=== PATIENT | female | born 2000 | race Caucasian/White ===

== ENCOUNTER 2020-04-12 20:33 | Emergency (ER) | payer OTHER, SELFPAY ==
--- NOTE | ~2020-04-12 | XR_ITS ---
XR chest 1V portable DATE: 04/12/2020 21:27 INDICATION: Cough, shortness of breath, nausea, vomiting TECHNIQUE: Portable upright AP chest on 04/12/2020 at 2121 hours COMPARISON: 03/26/2020 PA chest FINDINGS: Normal heart size. No hilar or mediastinal enlargement. No pulmonary infiltrate or consolid ation, pleural effusion or pulmonary vascular congestion or pneumothorax. IMPRESSION: No active cardiopulmonary disease Reviewed, dictated and finalized at location A.
[2020-04-12 20:36] VITALS: BP 120/66; PULSE 109; RESP 17; TEMP 37.7; O2SAT 100
--- NOTE | 2020-04-12 20:49 | ED.NAVMDI ---
HPI - Nausea/Vomiting/Diarrhea General Chief complaint: Nausea/Vomiting/Diarrhea Stated complaint: n/v Time Seen by Provider: 04/12/20 20:49 Source: patient and family Mode of arrival: ambulatory Limitations: no limitations History of Present Illness HPI Narrative: Patient is a 19-year-old female with a history of hypothyroidism, PCOS who presents for evaluation of nausea, vomiting, cough, subjective fevers. Patient states that initially she had attributed her nausea and diarrhea to some Turkish food that she ate on as she had awakened night with vomiting and diarrhea. However, patient on Tuesday developed subjective fever, chills, myalgias, states that she feels very weak and fatigued. She denies any rash. She reports a dry cough. Patient recently traveled home from [place] on April 09, was masking for the flight, did not mass continuously while in [place]. Related Data Home Medications Medication Instructions Recorded Confirmed drospirenone-ethinyl estradiol tablet 04/12/20 04/12/20 [Nubia (28)] levothyroxine 04/12/20 liraglutide [Victoza 3-Davis] mg SUBCUT 04/12/20 metformin mg PO 04/12/20 Allergies Allergy/AdvReac Type Severity Reaction Status Date / Time Cephalosporins AdvReac Unknown GI UPSET Verified 04/12/20 20:35 erythromycin base AdvReac Unknown GI UPSET Verified 04/12/20 20:35 Review of Systems Review of Systems: Narrative: CONSTITUTIONAL: Reports subjective fever and chills EYES: Denies visual changes, redness, or discharge. ENT: Reports rhinorrhea and congestion CARDIOVASCULAR: Denies chest pain, palpitations, or edema. RESPIRATORY: Reports dry cough, denies shortness of breath GASTROINTESTINAL: Denies current abdominal pain, reports nausea, vomiting and diarrhea GENITOURINARY: Denies dysuria or hematuria. SKIN: Denies rash or itching. MUSCULOSKELETAL: Denies back pain, joint pain, reports myalgias NEUROLOGIC: Denies headache, numbness, reports feeling diffusely weak PMFSH Past Medical History Medical History Hypothyroidism PCOS (polycystic ovarian syndrome) Social History Social History (Updated 04/12/20 @ 21:10 by Mela Macias MD) Smoking status: Never smoker Alcohol intake: current Alcohol use details: Social Substance use: never Gender identity (if verbalized by the patient): Female Exam Narrative: Exam Narrative: GENERAL: Awake, alert, conversant HEAD: Normocephalic, atraumatic. EYES: PERRLA and EOMI. ENT: Nares clear, no rhinorrhea or epistaxis. Mucous membranes dry NECK: Supple. CHEST: No respiratory distress, breathing even and non labored HEART: Tachycardic rate, sinus rhythm ABDOMEN:Non distended, non tender EXTREMITIES: Normal range of motion. No edema. SKIN: Warm, dry, no rash. NEURO:No focal deficits. Alert and oriented x3 Course Vital Signs Vital signs: Vital Signs Temperature 37.7 C H 04/12/20 20:36 Pulse Rate 109 H 04/12/20 20:36 Respiratory Rate 17 04/12/20 20:36 Blood Pressure 120/66 04/12/20 20:36 Pulse Oximetry 100 04/12/20 20:36 Temperature 37.1 C 04/12/20 23:41 Pulse Rate 94 04/12/20 23:41 Respiratory Rate 17 04/12/20 23:41 Blood Pressure 105/67 04/12/20 23:41 Pulse Oximetry 97 04/12/20 23:41 MDM - Nausea/Vomiting/Diarrhea MDM Narrative Medical decision making narrative: Patient presented for evaluation of cough, vomiting, diarrhea. At the time of assessment, patient is mildly tachycardic. Abdomen is soft without focal tenderness. Patient is in no respiratory distress. Laboratory results are reassuring. No severe electrolyte derangement. No findings of leukocytosis, transaminitis. Patient has blood, white blood cells, leukoesterase present in the urinalysis which is possibly consistent with urinary tract infection. Given the vomiting, I believe we should go ahead and treat this. Chest x-ray showed no evidence of pneumonia
[2020-04-12] MEDS: ONDANSETRON INJ 4 MG/2 ML VIAL IV PUSH (21:00)
[2020-04-12] MEDS: SODIUM CHLORIDE 0.9% IV 2,000 ML 999 ML IV CONT (21:00)
[2020-04-12 21:07] LABS: Basophils Percent Auto 0.5 % (0.2-1.2); Eosinophils Percent Auto 0.3 % (0-4.4); Hemoglobin 13.1 g/dL (12.0-15.0); Immature Granulocyte Absolute 0.02 K/mm3 (0.00-0.031); Immature Granulocyte Percent A 0.5 % (0-0.5); Lymphocytes Absolute Auto 0.74 K/mm3 (0.9-3.2); Lymphocytes Percent Auto 18.6 % (18.3-44.2); Mean Corpuscular HGB Conc 33.6 g/dl (32-36); Mean Corpuscular Hemoglobin 28.7 pg (26-34); Mean Corpuscular Volume 85.5 fl (80-100); Mean Platelet Volume 9.7 fl (7.4-10.4); Monocytes Absolute Auto 0.5 K/mm3 (0.1-0.6); Monocytes Percent Auto 12.1 % (2.6-8.5); Neutrophils Absolute Auto 2.7 K/mm3 (1.3-6.7); Platelet Count Result 279 k/mm3 (150-375); Red Blood Count 4.56 M/mm3 (4.2-5.4); Red Cell Distribution Width 12.9 % (11.5-14.5)
[2020-04-12 21:11] LABS: Add Urine Microscopic? YES; Appearance Urine Clear (Clear); Bacteria Urine Trace /hpf; Bilirubin Urine Negative (Negative); Blood Urine 1+ (Negative); Color Urine Yellow (Yellow); Glucose Urine UA Negative (Negative); Ketones Urine 1+ mg/dL (Negative); Leukocyte Esterase Ur 2+ LEU/UL (Negative); Mucus Urine Heavy /lpf; Nitrate Urine Negative (Negative); Protein Urine 1+ mg/dL (Negative); Specific Grav Ur 1.023 (1.001-1.035); Squamous Epithelial Cell Urine Few /hpf (Few)
[2020-04-12 21:18] LABS: Alanine Aminotransferase 24 U/L (4-35); Alkaline Phosphatase 88 U/L (38-126); Anion Gap 9 mmol/L (8-16); Aspartate Amino Transferase 42 U/L (14-36); Bilirubin,Total 0.2 mg/dL (0.2-1.3); Blood Urea Nitrogen 5 mg/dL (7-17); Calcium 8.8 mg/dL (8.4-10.2); Carbon Dioxide 23 mmol/L (22-30); Chloride 105 mmol/L (98-107); Estimated CRCL calculation 103 ml/min; Estimated Glomerular Filt Rate > 60; Glucose 98 mg/dL (65-105); Lipase 208 U/L (23-300); Potassium 3.5 mmol/L (3.4-5.0); Sodium 137 mmol/L (137-145)
[2020-04-12] MEDS: KETOROLAC 15 MG/ML VIAL (*BKC) IV PUSH (22:05)
[2020-04-12 22:31] VITALS: BP 109/73; PULSE 96; RESP 16; O2SAT 100
[2020-04-12 22:35] VITALS: TEMP 37.7
[2020-04-12 23:41] VITALS: BP 105/67; PULSE 94; RESP 17; TEMP 37.1; O2SAT 97
[2020-04-14 12:10] LABS: SARS-CoV-2 RNA PCR Positive
== END 2020-04-12 23:43 | disposition home or self-care (01) ==
PROVIDERS: Emergency Provider Emergency Medicine
DX: U07.1 COVID-19 (principal); N39.0 Urinary tract infection, site not specified; A05.9 Bacterial foodborne intoxication, unspecified; E03.9 Hypothyroidism, unspecified; E86.0 Dehydration; E28.2 Polycystic ovarian syndrome; Z79.84 Long term (current) use of oral hypoglycemic drugs
CPT/HCPCS: 36415; 71045; 80053; 81001; 81025; 83690; 85025; 87086; 87088; 87635; 96361; 96374; 96375; 99284; C9803; J1885; J2405; J7030; U0003

== ENCOUNTER 2020-09-04 10:44 | Outpatient (CLI) | payer OTHER, SELFPAY ==
--- NOTE | ~2020-09-04 | US_ITS ---
EXAMINATION: US pelvic complete DATE: 09/04/2020 11:05 INDICATION: Polycystic ovary disease. Pelvic pain. Comparison:No prior studies for comparison. TECHNIQUE: Multiple transabdominal sonographic images of the pelvis performed. FINDINGS: The uterus measures 8.6 x 3.1 x 3.9 cm. The endometrial complex measures 6 mm. The right ovary measures 2.3 x 1.8 x 2.3 cm and the left ovary measures 3.6 x 1.7 x 1.7 cm. There ar e small follicles in each ovary. There is no free fluid in the pelvis. There are no abnormal masses seen on either side. IMPRESSION: 1. Normal pelvic ultrasound. Reviewed, dictated and finalized at location A. SION COATER
== END 2020-09-04 10:45 ==
PROVIDERS: Visit Provider Nurse Practitioner
DX: E28.2 Polycystic ovarian syndrome (principal)
CPT/HCPCS: 76856

== ENCOUNTER 2021-11-11 10:01 | Outpatient (CLI) | payer OTHER, SELFPAY ==
[2021-11-11 16:48] LABS: Add Urine Microscopic? YES; Appearance Urine Cloudy (Clear); Bacteria Urine 1+ /hpf; Bilirubin Urine Negative (Negative); Blood Urine 2+ (Negative); Color Urine Yellow (Yellow); Glucose Urine UA Negative (Negative); Ketones Urine Negative (Negative); Leukocyte Esterase Ur 3+ LEU/UL (Negative); Mucus Urine Rare /lpf; Nitrate Urine Negative (Negative); Protein Urine Negative (Negative); Squamous Epithelial Cell Urine Many /hpf (Few); Urobilinogen Urine Negative mg/dL (<2.0); WBC Urine 31-50 /hpf
[2021-11-11 16:58] LABS: Specific Grav Ur 1.004 (1.001-1.035)
== END 2021-11-11 10:02 | disposition home or self-care (01) ==
LOC: ANHWCLAB 10:06
PROVIDERS: PCP Internal Medicine; Visit Provider Internal Medicine Endocrinology, Diabetes & Metabolism
DX: R30.0 Dysuria (principal)
CPT/HCPCS: 81001; 87077; 87086; 87186

== ENCOUNTER 2022-05-09 13:16 | Emergency (ER) | payer OTHER, SELFPAY ==
--- NOTE | ~2022-05-09 | CT_ITS ---
EXAMINATION: CT abdomen pelvis w con DATE: 05/09/2022 15:56 INDICATION: abd pain, vomiting TECHNIQUE: Computed tomography (CT) of the abdomen and pelvis was performed with 100 mL Omnipaque-350 intravenous contrast. Automated exposure control and iterative reconstruction technique were employe d. The dose-length product was 698.60 mGy-cm. COMPARISON: None. FINDINGS: Lower thorax: Unremarkable Liver: Normal. Biliary/Gallbladder: Gallbladder is absent. No bile duct dilation. Pancreas: No mass or duct dilation. Spleen: Normal. Adrenals:No mass. Kidneys: No mass, stone, or hydronephrosis. GI tract: No small or large bowel dilation. Normal appendix. Mesentery/Peritoneum: No ascites, mass, or free air. Retroperitoneum: No mass. Pelvis: Pelvic organs are within normal limits. Soft Tissues: Soft tissues and body wall unremarkable. Bones: No acute osseous finding. IMPRESSION: No acute abdominopelvic process detected. Reviewed, dictated and finalized at location K.
[2022-05-09 13:34] VITALS: BP 113/74; PULSE 80; RESP 14; TEMP 36.7; O2SAT 100
[2022-05-09 13:43] VITALS: BP 113/74; PULSE 75; RESP 16; TEMP 36.7; O2SAT 100
[2022-05-09 14:00] LABS: Basophils Percent Auto 0.4 % (0.2-1.2); Eosinophils Percent Auto 0.4 % (0-4.4); Hematocrit 41.8 % (37.0-47.0); Hemoglobin 14.2 g/dL (12.0-15.0); Immature Granulocyte Absolute 0.01 K/mm3 (0.00-0.031); Immature Granulocyte Percent A 0.1 % (0-0.5); Lymphocytes Absolute Auto 1.84 K/mm3 (0.9-3.2); Lymphocytes Percent Auto 22.2 % (18.3-44.2); Mean Corpuscular Hemoglobin 29.2 pg (26-34); Mean Platelet Volume 9.3 fl (7.4-10.4); Monocytes Absolute Auto 0.5 K/mm3 (0.1-0.6); Monocytes Percent Auto 5.7 % (2.6-8.5); Neutrophils Absolute Auto 5.9 K/mm3 (1.3-6.7); Neutrophils Percent Auto 71.2 % (45.5-73.1); Platelet Count Result 299 k/mm3 (150-375); Red Blood Count 4.86 M/mm3 (4.2-5.4); Red Cell Distribution Width 12.4 % (11.5-14.5); White Blood Count 8.3 K/mm3 (4.5-10.0)
[2022-05-09 14:05] VITALS: BP 102/75; BP 110/94; BP 99/57; PULSE 75; PULSE 90; PULSE 93
[2022-05-09 14:10] LABS: Alanine Aminotransferase 31 U/L (6-35); Albumin Level 4.6 g/dL (3.5-5.1); Alkaline Phosphatase 89 U/L (38-126); Anion Gap 13 mmol/L (8-16); Aspartate Amino Transferase 36 U/L (14-36); Bilirubin,Total 0.6 mg/dL (0.2-1.3); Blood Urea Nitrogen 6 mg/dL (7-17); Calcium 9.3 mg/dL (8.4-10.2); Carbon Dioxide 25 mmol/L (22-30); Chloride 102 mmol/L (98-107); Estimated CRCL calculation 100 ml/min; Estimated Glomerular Filt Rate > 60; Glucose 106 mg/dL (65-110); Lipase 142 U/L (23-300); Potassium 4.5 mmol/L (3.4-5.0); Sodium 140 mmol/L (137-145)
[2022-05-09 14:13] LABS: Appearance Urine Slightly Cloudy (Clear); Bilirubin Urine Negative (Negative); Blood Urine Negative (Negative); Color Urine Yellow (Yellow); Glucose Urine UA Negative (Negative); Ketones Urine 1+ mg/dL (Negative); Leukocyte Esterase Ur 1+ LEU/UL (Negative); Nitrate Urine Negative (Negative); Protein Urine Negative (Negative); Specific Grav Ur 1.025 (1.001-1.035); Urobilinogen Urine 0.2 mg/dL (<2.0)
[2022-05-09] MEDS: SODIUM CHLORIDE 0.9% IV 1,000 ML 999 ML IV CONT (14:14)
[2022-05-09] MEDS: ONDANSETRON INJ 4 MG/2 ML VIAL IV PUSH (14:14)
[2022-05-09 14:28] LABS: Bacteria Urine Trace /hpf; Mucus Urine Heavy /lpf; Squamous Epithelial Cell Urine Many /hpf (Few); WBC Urine 16-20 /hpf
[2022-05-09 14:29] LABS: Add Urine Microscopic? YES
--- NOTE | 2022-05-09 14:30 | ED.NAVMDI ---
HPI - Nausea/Vomiting/Diarrhea General Chief complaint: Nausea/Vomiting/Diarrhea Stated complaint: n/v body aches Time Seen by Provider: 05/09/22 13:41 Source: patient Mode of arrival: ambulatory Limitations: no limitations History of Present Illness HPI Narrative: This is a 21 year old female that presents to the ER for nausea, vomiting and diarrhea. Ongoing since yesterday. Associated with myalgias. Denies fever. Related Data Home Medications Medication Instructions Recorded Confirmed liraglutide 0.6 mg/0.1 mL (18 mg/3 mg subcut 04/12/20 11/11/21 mL) subcutaneous pen injector (Victoza 3-Davis) metformin 500 mg tablet 500 mg PO TID 12/30/20 11/11/21 norethindrone acetate 1 mg-ethinyl 1 tablet PO DAILY 11/11/21 11/11/21 estradiol 5 mcg tablet spironolactone 100 mg tablet 100 mg PO .qod 11/11/21 11/11/21 Allergies Allergy/AdvReac Type Severity Reaction Status Date / Time Cephalosporins AdvReac Unknown GI UPSET Verified 11/11/21 09:16 erythromycin base AdvReac Unknown GI UPSET Verified 11/11/21 09:16 Review of Systems Review of Systems: CONSTITUTIONAL: Denies fever RESPIRATORY: Denies cough or dyspnea. GASTROINTESTINAL: Reports abdominal pain, nausea, vomiting, and diarrhea. GENITOURINARY: Denies dysuria All systems reviewed & are unremarkable except as noted in HPI and below PMFSH Past Medical History Medical History (Updated 05/09/22 @ 17:14 by Tianna Keller PA-C) Hx of migraines Hypothyroidism Left knee injury PCOS (polycystic ovarian syndrome) Surgical History Surgical History (Updated 07/01/20 @ 08:37 by Naun Aviles) History of cholecystectomy History of tonsillectomy Family History Family History (Updated 07/01/20 @ 08:38 by Naun Aviles) Other CAD (coronary artery disease) Heart disease Social History Social History Smoking status: Never smoker Alcohol intake: current Alcohol use details: Social Substance use: never Gender identity (if verbalized by the patient): Female Exam Narrative: GENERAL: Well-appearing, well-nourished, and in no acute distress. HEAD: Normocephalic, atraumatic. EYES: EOMI. CHEST: Clear to auscultation. No respiratory distress. No wheezes rales or rhonchi HEART: Regular rate and rhythm. No murmur heard. Normal peripheral pulses. ABDOMEN: Soft, nondistended, normal active bowel sounds. Mild tenderness to palpation in the epigastrium, without guarding EXTREMITIES: Normal range of motion. No edema. SKIN: Warm, dry, no rash. NEURO: No focal deficits. Alert and oriented x3. PSYCH: Normal mood and affect Course Vital Signs Vital signs: Vital Signs Temperature 98.1 F 05/09/22 13:34 Pulse Rate 80 05/09/22 13:34 Respiratory Rate 14 05/09/22 13:34 Blood Pressure 113/74 05/09/22 13:34 Pulse Oximetry 100 05/09/22 13:34 Temperature 98.1 F 05/09/22 13:43 Pulse Rate 93 05/09/22 14:05 Respiratory Rate 16 05/09/22 13:43 Blood Pressure 110/94 H 05/09/22 14:05 Pulse Oximetry 100 05/09/22 13:43 Oxygen Delivery Room Air 05/09/22 13:43 MDM - Nausea/Vomiting/Diarrhea MDM Narrative Medical decision making narrative: Patient presents to the emergency department for nausea, vomiting and diarrhea. Ongoing over the last couple of days. She is afebrile and nontoxic-appearing. Her vitals are stable. CBC is without leukocytosis. Metabolic panel and lipase without concerning findings. Bedside test is negative. UA likely a contaminated catch. This will be sent for culture. Patient is not having any urinary symptoms. Influenza and COVID screens are negative. CT scan of the abdomen and pelvis without acute findings. Patient was updated on case findings. Hydrated and given antiemetic with relief. Able to tolerate p.o. challenge. Patient is instructed on continued care of gastroenteritis. She is to follow-up with her primary care doctor. She
[2022-05-09] MEDS: FAMOTIDINE 20 MG/2 ML VIAL IV PUSH (14:41)
[2022-05-09 14:51] LABS: Influenza A QL RT-PCR Negative (Negative); Influenza B QL RT-PCR Negative (Negative); SARS-CoV-2 RNA PCR Negative
[2022-05-09 17:26] VITALS: BP 110/73; PULSE 91; RESP 18; O2SAT 99
== END 2022-05-09 17:28 | disposition home or self-care (01) ==
PROVIDERS: Physician Assistant; Emergency Provider Emergency Medicine; PCP Internal Medicine
DX: K52.9 Noninfective gastroenteritis and colitis, unspecified (principal); Z20.822 Contact with and (suspected) exposure to COVID-19; E03.9 Hypothyroidism, unspecified; E28.2 Polycystic ovarian syndrome; Z79.84 Long term (current) use of oral hypoglycemic drugs; Z79.899 Other long term (current) drug therapy
CPT/HCPCS: 36415; 74177; 80053; 81001; 81025; 83690; 85025; 87086; 87088; 87502; 96365; 96375; 99284; C9803; J0131; J2405; J7030; Q9967; U0003; U0005

== ENCOUNTER 2024-08-14 11:26 | Emergency (ER) | payer BC, SELFPAY ==
[2024-08-14] VITALS (7 sets, daily range): BP systolic 115–121; BP diastolic 71–76; PULSE 83; RESP 19; TEMP 36.8; O2SAT 98–100
--- NOTE | ~2024-08-14 | CT_ITS ---
CT abdomen pelvis wo con Ordering provider: Allan gerardo, History psych content with pneumonia cannot acute intracranial abnormality left anterior limb I see l eft ventricular Metallic shrapnel Impression negative bilateral kidney 24 years Female with . RLQ and flank pain. . Comparison: None. Technique: CT abdomen and pelvis without IV and without oral contrast. Automated exposure control and iterative reconstruction technique were employed. The dose-length product was 956.07 mGy-cm. Findings: VISUALIZED LOWER CHEST: Normal. UPPER ABDOMINAL ORGANS: Liver: Hepatomegaly. Gallbladder: Status post cholecystectomy. Spleen: Normal. Stomach/duodenum: Normal. Pancreas: Normal. Adrenals: Normal. Kidneys: Tiny stone in the right kidney midpole. Small hyperdense lesion in the left kidney upper malathi e medially which may be hemorrhagic cyst or a small aneurysm measuring 4 mm. Follow-up advised. PELVIC ORGANS: The bladder is normal. Right ovarian cyst is noted measuring 2.3 cm. BOWEL AND MESENTERY: Colon: No evidence of diverticulitis. The appendix is not demonstrated. Small Bowel: Normal. No obstruction. Peritoneum/mesentery: No free air or free fluid. No mesenteric lymphadenopathy. RETROPERITONEUM: Normal aorta. No retroperitoneal lymphadenopathy. MUSCULOSKELETAL: Superficial soft tissues: The superficial soft tissues are normal. Bones: Normal spine. IMPRESSION: 1. Mild hepatomegaly. 2. Stone in the right kidney midpole. 3. Tiny hyperdensity in the left kidney upper pole medially. Differential include hemorrhagic cyst v ersus tiny aneurysm. Follow-up advised. Reviewed, dictated and finalized at location A. RVISOR SAWMILL Impression negative bilateral kidney 24 years Female with . RLQ and flank pain. . Comparison: None. Technique: CT abdomen and pelvis without IV and without oral contrast. Automate d exposure control and iterative reconstruction technique were employed. The do se-length product was 956.07 mGy-cm. Findings: VISUALIZED LOWER CHEST: Normal. UPPER ABDOMINAL ORGANS: Liver: Hepatomegaly. Gallbladder: Status post cholecystectomy. Spleen: Normal. Stomach/duodenum: Normal. Pancreas: Normal. Adrenals: Normal. Kidneys: Tiny stone in the right kidney midpole. Small hyperdense lesion in the left kidney upper pole medially which may be hemorrhagic cyst or a small aneur ysm measuring 4 mm. Follow-up advised. PELVIC ORGANS: The bladder is normal. Right ovarian cyst is noted measuring 2.3 cm. BOWEL AND MESENTERY: Colon: No evidence of diverticulitis. The appendix is not demonstrated. Small Bowel: Normal. No obstruction. Peritoneum/mesentery: No free air or free fluid. No mesenteric lymphadenopathy. RETROPERITONEUM: Normal aorta. No retroperitoneal lymphadenopathy. MUSCULOSKELETAL: Superficial soft tissues: The superficial soft tissues are normal. Bones: Normal spine. IMPRESSION: 1. Mild hepatomegaly. 2. Stone in the right kidney midpole. 3. Tiny hyperdensity in the left kidney upper pole medially. Differential incl ude hemorrhagic cyst versus tiny aneurysm. Follow-up advised.
[2024-08-14 11:59] LABS: BEDSIDEPREGUCG Negative (Negative)
[2024-08-14 12:18] LABS: Add Urine Microscopic? YES; Appearance Urine Clear (Clear); Bacteria Urine Rare /hpf; Bilirubin Urine Negative (Negative); Blood Urine 1+ (Negative); Color Urine Yellow (Yellow); Glucose Urine UA Negative (Negative); Ketones Urine Negative (Negative); Leukocyte Esterase Ur 2+ LEU/UL (Negative); Nitrate Urine Negative (Negative); Non Pathogenic Casts 0-2; Protein Urine Negative (Negative); Specific Grav Ur 1.005 (1.001-1.035); Squamous Epithelial Cell Urine None Seen /hpf (Few); Urobilinogen Urine 0.2 mg/dL (<2.0); WBC Urine 21-50 /hpf (0-3); pH Urine 6.5 (5.0-9.0)
[2024-08-14] MEDS: SODIUM CHLORIDE 0.9% IV 1,000 ML 999 ML IV CONT (12:22)
[2024-08-14] MEDS: KETOROLAC 15 MG/ML VIAL (*BKC) IV PUSH (12:22)
[2024-08-14] MEDS: HYDROmorphone HCL INJ (*CRX) 1 MG/ML SYR 0.5 MG IV PUSH (12:22)
--- NOTE | 2024-08-14 13:06 | ED_ITS ---
HPI - General Adult General Chief complaint: Abdominal Pain Stated complaint: R abd/flank pain Time Seen by Provider: 08/14/24 12:00 History of Present Illness HPI narrative: 24-year-old female presenting with urinary symptoms and right-sided abdominal pain. Patient developed UTI symptoms 4-5 days ago. She took a dose of Macrobid but then developed severe headache and was switched to levofloxacin. She has only taken 1 dose of levofloxacin last night, however she also developed a s evere pain in the right lower quadrant and right back. She is still having urinary urgency and frequency. She denies fevers chills chest pain difficulty breathing. She has nausea but no vomiting. No diarrhea. No history of kidney stones. Related Data Home Medications ?Medication ?Instructions ?Recorded ?Confirmed ?Last Taken ?Type liraglutide 0.6 mg/0.1 mL (18 mg/3 mg subcut 04/12/20 05/17/22 Unknown History mL) subcutaneous pen injector ([employer] 3-Davis) metformin 500 mg tablet 500 mg PO TID 12/30/20 05/17/22 Unknown History Allergies Allergy/AdvReac Type Severity Reaction Status Date / Time cephalexin (From Keflex) Allergy Mild Unknown Verified 08/14/24 11:44 Cephalosporins AdvReac Unknown GI UPSET Verified 08/14/24 11:44 erythromycin base AdvReac Unknown GI UPSET Verified 08/14/24 11:44 PMFSH Past Medical History Medical History Left knee injury Hx of migraines PCOS (polycystic ovarian syndrome) Hypothyroidism Surgical History Surgical History History of tonsillectomy History of cholecystectomy Family History Family History (Updated 07/01/20 @ 08:38 by Naun Aviles) Other CAD (coronary artery disease) Heart disease Social History Social History Smoking status: Never smoker Alcohol intake: current Alcohol use details: Social Substance use: never Gender identity (if verbalized by the patient): Female Exam Narrative: APPEARANCE: No apparent distress. Head: atraumatic. EYES: EOMI, NOSE: Atraumatic NECK: Trachea midline RESPIRATORY: No increased rate of breathing , clear to auscultation CARDIOVASCULAR: RRR, no peripheral edema ABDOMINAL: Non-distended soft nontender, right CVA tenderness MUSCULOSKELETAl: No obvious deformities NEURO: Alert. Moving 4/4 extremities SKIN:: Warm, dry. Normal color PSYCHIATRIC: Normal affect Course Vital Signs Vital signs: Vital Signs Temperature 98.2 F 08/14/24 11:38 Pulse Rate 83 08/14/24 11:38 Respiratory Rate 19 08/14/24 11:38 Blood Pressure 115/71 08/14/24 11:38 Pulse Oximetry 99 08/14/24 11:38 Oxygen Delivery Room Air 08/14/24 11:38 Temperature 98.2 F 08/14/24 11:38 Pulse Rate 83 08/14/24 11:38 Respiratory Rate 19 08/14/24 11:38 Blood Pressure 115/73 08/14/24 12:16 Pulse Oximetry 100 08/14/24 13:03 Oxygen Delivery Room Air 08/14/24 11:38 Medical Decision Making MDM Narrative Medical decision making narrative: -Course: 24-year-old female presenting urinary symptoms right-sided pain. Urine indicative of infection. CT without an infected kidney stone. There was an incidental finding on her left kidney that could be a possible 4 mm aneurysm versus proteinaceous/ hemorrhagic cyst. Patient was informed of this finding. She has been instructed to follow-up with her primary care physician for further evaluation. Patient is on levofloxacin which will cover for pyelo. she has been instructed to complete her course of levofloxacin. Patient discharged with return precautions for severe flank pain or worsening condition. -DDX includes but is not limited to: UTI, pyelonephritis, kidney stone, infected stone, muscle strain -Co-morbidities complicating care: multiple antibiotic allergies -Independent interpretation of studies: labs imaging reviewed -Discussion of Management/Consultants: -Interventions: Dilaudid, 1 L normal saline, Toradol -Shared decision making / Disposition: discharged Vital Signs Vital Signs: Vital Signs Temperature 98.2 F 08/14/24 11:38 Pulse Rate 83 08/14/24 11:38 Respiratory Rate 19 08/14/24 11:38 Blood Pressure 115/71 08/14/24 11:38 Pulse Oximetry 99 08/14/24 11:38 Oxygen Delivery Room Air 08/14/24 11:38 Temperature 98.2 F 08/14/24 11:38 Pulse Rate 83 08/14/24 11:38 Respiratory Rate 19 08/14/24 11:38 Blood Pressure 115/73 08/14/24 12:16 Pulse Oximetry 100 08/14/24 13:03 Oxygen Delivery Room Air 08/14/24 11:38 Lab Data Labs: Lab Results 08/14/24 08/14/24 Range/Units 11:55 11:57 Urine Color Yellow (Yellow) Urine Appearance Clear (Clear) Urine pH 6.5 (5.0-9.0) Ur Specific [place] 1.005 (1.001-1.035) Urine Protein Negative (Negative) mg/dL Urine Glucose (UA) Negative (Negative) mg/dL Urine Ketones Negative (Negative) mg/dL Ur Blood (Man) 1+ H (Negative) Urine Nitrate Negative (Negative) Urine Bilirubin Negative (Negative) Urine Urobilinogen 0.2 (<2.0) mg/dL Leukocyte Esterase Rfl 2+ H (Negative) COSME/UL Urine RBC 3-5 H (0-2) /hpf Urine WBC 21-50 H (0-3) /hpf Ur Squamous Epith Cells None seen (Few) /hpf Urine Bacteria Rare /hpf Urine Casts 0-2 POC Urine HCG, Qual Negative (Negative) Discharge Plan Discharge Clinical Impression: Pyelonephritis Patient Disposition: Home, Self-Care Condition: Stable Instructions: Antibiotic Form, Kidney Infection (ED) Additional Instructions: Using emergency department for urinary symptoms and flank pain. You likely have a kidney infection. Please complete the course of levofloxacin as directed. If your symptoms are not improving over the next 3-4 days or you are getting worse please call your primary care physician or return to the ED as he may need a different antibiotic. You were found have an incidental finding on your left kidney which may represent a hemorrhagic/ proteinaceous cyst versus a renal artery aneurysm. This is not related to your presentation in the ED today. Please follow-up with your primary care physician for further workup. If you develop severe left- sided flank pain, please return to the ED immediately. Patient Language: Icelandic Prescriptions: New levofloxacin 750 mg tablet 750 mg PO DAILY Qty: 6 0RF acetaminophen 500 mg tablet 1,000 mg PO TID PRN (Reason: rudy) 7 Days Qty: 42 0RF ibuprofen 800 mg tablet 800 mg PO TID PRN (Reason: pain) 7 Days Qty: 21 0RF No Action metformin 500 mg tablet 500 mg PO TID ondansetron 4 mg tablet,disintegrating 4 mg PO Q8H PRN (Reason: nausea and vomiting) Qty: 14 0RF Victoza 3-Davis 0.6 mg/0.1 mL (18 mg/3 mL) pen injector SUBCUT ibuprofen 400 mg tablet 400 mg PO TID PRN (Reason: fever or pain) 10 Days Qty: 30 0RF levothyroxine [Synthroid] 150 mcg tablet 150 mcg PO DAILY Qty: 90 1RF Follow-up/Referrals: Deandre,Darryl Zavala MD [Primary Care Provider] - 1 Week (ED f/danyel Treviño. Incidental finding on L kidney.)
== END 2024-08-14 15:33 | disposition home or self-care (01) ==
PROVIDERS: Registered Nurse; Emergency Provider Emergency Medicine; PCP Internal Medicine
DX: N12 Tubulo-interstitial nephritis, not specified as acute or chronic (principal); E28.2 Polycystic ovarian syndrome; E03.9 Hypothyroidism, unspecified; Z90.49 Acquired absence of other specified parts of digestive tract; N20.0 Calculus of kidney; R16.0 Hepatomegaly, not elsewhere classified
CPT/HCPCS: 74176; 81001; 81025; 87086; 96361; 96374; 96375; 99284; J1171; J1885; J7030

== ENCOUNTER 2024-08-24 13:53 | Outpatient (CLI) | payer BC, SELFPAY ==
--- NOTE | ~2024-08-24 | US_ITS ---
EXAMINATION: US renal BI DATE: 08/24/2024 14:16 INDICATION: Disorder of kidney and ureter with abnormal CT TECHNIQUE: Multiple ultrasound grayscale images of the kidneys were obtained. COMPARISON: None. FINDINGS: The right kidney measures 10.3 x 3.9 x 4.9 cm. The left kidney measures 10.2 x 4.7 x 4.6 cm. The kidn eys demonstrate normal echogenicity. There is no hydronephrosis in either kidney. No stones identifi ed. The bladder is normal. IMPRESSION: 1. Normal kidneys without hydronephrosis. Reviewed, dictated and finalized at location B. ATTENDANT
== END 2024-08-24 13:54 | disposition home or self-care (01) ==
LOC: GOSHIMG 13:56
PROVIDERS: PCP Urology; Visit Provider Internal Medicine
DX: N28.9 Disorder of kidney and ureter, unspecified (principal)
CPT/HCPCS: 76775

== ENCOUNTER 2025-03-17 14:24 | Emergency (ER) | payer BC, SELFPAY ==
--- NOTE | ~2025-03-17 | US_ITS ---
EXAMINATION: US OB transvaginal INDICATION: vaginal cramping while TECHNIQUE: Sonography of the pelvis was performed by transabdominal and transvaginal techniques. COMPARISON: None. RESULT: Uterus: 7.8 x 4.3 x 5.1 cm. Anteverted. Homogenous myometrium. Fluid in the endometrial cavity. Intrauterine gestational sac: Single present. Mean Sac Diameter: 0.45 cm, corresponding gestational age 5 week 2 days. Yolk sac: not identified. Embryo: Not seen. Subgestational hematoma: 7 mm hypoechoic focus adjacent to the gestational sac . Right ovary: 4.4 x 1.9 x 3.7 cm. Vascular flow is present. Small hypoechoic focus with surrounding flow likely representing a corpus luteal cyst. Left ovary: 2.4 x 1.5 x 1.5 cm. Vascular flow is present. No adnexal mass. Pelvis free fluid: None. IMPRESSION: Intrauterine of uncertain viability. pole not identified, possibly due to early gesta tional age. Small subchorionic hemorrhage. Endometrial cavity fluid, possibly representing blood, correlate for v aginal bleeding. Estimated Gestational Age: 5 weeks, 2 days by mean gestational sac diameter. ADIEL by ultrasound 2025. Reviewed, dictated and finalized at location K. IMPRESSION: Intrauterine of uncertain viability. pole not identified, possi mango due to early gestational age. Small subchorionic hemorrhage. Endometrial cavity fluid, possibly representing blood, correlate for vaginal bleeding. Estimated Gestational Age: 5 weeks, 2 days by mean gestational sac diameter. E DD by ultrasound 11/15/2025.
--- OUTSIDE RECORDS SUMMARY | 2025-03-17 14:26 | XMS_ITS | Clinical Summary ---
Author Organization [facility] Address [address] [place] [address] Care Team Providers Care C[employer] [place] Cleaner Name Role Phone Darryl Carrera MD Primary Care Provider [phone] Source Comments [facility],non-owned Affiliates and Associated Physician Practices is amultiple site organization consisting of ambulatory clinics and hospital sitesin [place], [place]. This disclosure is being madepursuant to the Care Everywhere program and may not contain all information available regarding this patient. 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 Gender Identity Not on file Sexual Orientation Not on file Plan of Treatment Health Maintenance Due Date Last Done Comments HIV SCREENING 2013 HPV VACCINE (1 - 3-dose series) 2013 HEPATITIS C SCREENING 08/06/2016 DTAP/TDAP/TD VACCINES (1 - Tdap) 2017 HEPATITIS B VACCINE (1 of 3 - 19+ 3-dose series) 2017 COVID-19 VACCINE (2 - 2023-2 5 season) 2024 05/02/2021 DEPRESSION SCREENING 08/29/2024 INFLUENZA VACCINE (#1) 2025 06/25/2022 PAP SMEAR 09/08/2026 09/08/2023 ZOSTER VACCINE (1 of 2) 2048 HIB VACCINE Aged Out No longer eligi ble based on patient's age to complete this topic MENINGOCOCCAL (Group B) VACC INE SHARED DECISION-MAKING Aged Out No longer eligibl e based on patient's age to complete this topic MENINGOCOCCAL GROUPS A/C/Y/W VACCINE Aged Out No longer eligible b ased on patient's age to complete this topic PNEUMOCOCCAL VACCINE Aged Out No long er eligible based on patient's age to complete this topic Insurance [facility] Care Teams C[employer] [place] Cleaner Relationship Specialty Start Date End Date Darryl Carrera MD [address] [place] [id number] PCP - General 09/27/18
--- OUTSIDE RECORDS SUMMARY | 2025-03-17 14:27 | XMS_ITS | Data Portability ---
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 Plan of Treatment Reminders Order Date Submit Date Provider Last Modified By Organization Details Last Modified Time Details Appointments None record ed. Lab None record ed. Referral None record ed. Procedures None record ed. Surgeries None record ed. Imaging None record ed. Medication Orders None record ed. Patient TargetsNo targets recorded. Patient InstructionsNo instructions recorded. Reason for Referral None Reported. Results Created Date Observation Date Name Description Value Unit Range Abnormal Flag Note LastModifiedBy Organization Detail LastModifiedTime 12/05/19 19 11/18/2018 XR, cervi vincent spine , 2 or 3 view No observ ation record ed. BARCODE Not Available 2018 16:31:45 Result Notes None recorded. Problems No Known Problems Procedures Surgical History Date Name Laterality Status Provider Name and Address Organization Details Recorded Time Cholecystectomy completed Lizbet Lucio AF83 11/27/2018 11:22:43 Imaging Results None recorded. Procedure Notes None recorded. Medical Equipment None Reported. Allergies Allergen ID Allergen Name Allergen Category Reaction Reaction Severity Criticality Documentation Date Start Date Code Code System Note Provider Name and Address Organization Details Recorded Time 59532 Keflex medicatio n Not available Not available Not available 11/27/2018 10756 7 RxNorm Lizbet Lucio [employer] AF83 9 11:20:20 Medications Name Sig Start Date Stop Date Status Note LastModified by Organization Details LastModified Time metformin 500 mg tablet active Not Available Not Available Not Available levothyroxine 175 mcg tablet active Not Available Not Available N ot Available levothyroxine 137 mcg tablet active Not Available Not Available N ot Available clindamycin HCl 300 mg capsule active Not Available Not Available N ot Available azithromycin 250 mg tablet active Not Available Not Available Not Available hydrocodone 5 mg-acetaminophen 325 mg tablet active Not Available Not Availabl e Not Available ondansetron HCl 4 mg tablet active Not Available Not Available No t Available sertraline 100 mg tablet active Not Available Not Available Not Available pantoprazole 20 mg tablet,delayed release active Not Available Not Available Not Available levothyroxine 125 mcg tablet active Not Available Not Available N ot Available tobramycin 0.3 % eye drops active Not Available Not Available No t Available levothyroxine 150 mcg tablet active Not Available Not Available N ot Available methylprednisolone 4 mg tablets in a dose pack active Not Available Not Available No t Available ondansetron 4 mg disintegrating tablet active Not Available Not Available Not Available nitrofurantoin monohydrate/macrocr ystals 100 mg capsule active Not Available Not Available Not Available Gianvi (28) 3 mg-0.02 mg tablet active Not Available Not Avai lable Not Available Vitals Date Recorded Body height Body mass index (BMI) [Percentile] Per age and sex Body mass index (BMI) Body weight Provider Name and Address Organization Details Last Updated DateTime 11/27/2018 166.37 cm 96 % 33.6 kg/m2 41802.44 g Lizbet Valdes AF83 11/27/2018 11:19:06 Date Recorded Heart rate Systolic And Diastolic Provider Name and Address Organization Details Last Updated DateTime 11/27/2018 75 /min 120/85 mm[Hg] Verna Serrato [employer] 11/27/2018 10:54:34 Social History Question Answer Notes LastModified by Organizat ion Details LastModified Time Tobacco Smoking Status Never Smoker [employer]bet [employer] 11/27/2018 11:20:39 Auto Related Injury? No Information not available 11/27/2018 What Is Your Level Of Caffeine Consumption? Occasional Information not available 11/27/2018 Education Post Graduate Informatio n not available 11/27/2018 Who Is Your Employer? [employer] Information not available 11/27/2018 Marital Status Single Informati on not available 11/27/2018 What Was The Date Of Your Most Recent Tobacco Screening? 11/27/2018 Information not available 03/22/2019 How Many Children Do You Have? 0 Information not available 11/27/2018 How Much Tobacco Do You Smoke? No Information not available 11/27/2018 Work Related Injury? Yes Information not available 11/27/2018 Sex: Unknown Functional Status Question Answer Note LastModified by Organization D etails LastModified Time What is your level of alcohol consumption? None Information not available 11/27/2018 Are you currently employed? Yes Information not available 11/27/2018 What is your exercise level? None Information not available 11/27/2018 Mental Status None recorded. Family History Relationship Description Onset Age of this Age Resolved Age Notes LastModified by Organization Details LastModified Time Father No current problems or disability Not available 08/2018 11:20:29 Mother No current problems or disability Not available 08/2018 11:20:29 Medical History Condition Response Coronary Artery Disease N HIV or AIDS N Gout N Kidney Stones N Hyperthyroidism N Hernia N Head Trauma/Injury N Blood Clots N Lung Disease N Hypothyroidism Y Depression N COPD N Pacemaker N Anxiety Disorder Y Arthritis N Cancer N Stroke N Neck Injury N Leg or Foot Ulcers N High Cholesterol N Liver Disease N Rheumatoid Arthritis N Headaches N Fibromyalgia N Kidney Disease N Heart Problems N Migraines N Thyroid Problems N Anemia N Multiple Sclerosis N Tendon Tear N Ulcers N Heart Attack ([place]) N Diabetes N Bleeding Disorder N Seizures/Epilepsy N Tuberculosis N Urinary Tract Infection N Back Problems N Diverticulitis N Asthma N Lupus N Peripheral Vascular Disease N Sleep Disorder N GERD/Reflux N Hepatitis N Aneurysm N Heart Disease N Pulmonary Embolism N Hypertension N Osteoporosis N Gynecological HistoryNo gynecological history recorded. Obstetrics History GPAL:G 0 P 0 0 0 0 Past Encounters Encounter ID Performer Location Encounter Start Date Encounter Closed Date Diagnosis/Indication Diagnosis SNOMED-CT Code Diagnosis ICD10 Code Diagnosis Note [id number] Wilbert Pruitt DO [facility] [address] [facility] [address] [place] [id number] 11/27/2018 10:23:47 12/04/2018 11:42:48 Headache [id number] R51 I reviewed the patient's records were available, evaluated the patient within a reasonable degree of medical certainty I do not feel that the patient is suffering from a concussion at this time.She did have a head contusion and is rapidly improving. She does have a history of having some headaches and her current headaches are similar in nature to what she has had previously .It is possible that she had a very mild concussion at the time of the injury due to the symptoms she had 4 a couple of days after but at this time I am seeing no evidence of any sort of concussion I would not recommend additional treatment from that perspectiv e.I will release her for full work duties.If she is not having any worsening of her symptoms we will release her at [facility] at her next visit.If she has any difficulti es at all she is encouraged to contact me. Health Concerns Section Related Observation LastModified by Organization Detai ls LastModified Time None Recorded Concern Status LastModified by Organization Details LastModified Time None Recorded Advance Directives Directive None Recorded Payers Insurance Date Sequence Insurance Name Policy Number Policy Ricketts Covered Member ID Ricketts Member ID Guarantor Name [facility]08[facility]2018 [facility] Notes Date Note Type Note Provider Name a ca Address Organization Details Recorded Time 11/27/2018 text/html Patient is a 18 year old female who is seen today for evaluation of a reported work injury that was said to have occurred on November 18, 2018.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 She had about 3 in the last week.She has no other symptoms at this time.She denies any dizziness, balance problems, vision problems, cognitive issues, memory issues.She states she has had history of some concussions before and this does not feel like that at all.She did see occupational medicine and was taken off of work and then given rather significant restrictions.She has not returned to work as of yet due to the amount of restriction she has.She feels that she is overall at her baseline with only very mild headaches.She does feel that the headaches are similar in nature to headache she has had in the past as well may [place] [address], [place], [address], [facility], [facility] 11/28/2018 20:29:45 OBGyn Episode No OBEpisode recorded.
--- OUTSIDE RECORDS SUMMARY | 2025-03-17 14:27 | XMS_ITS | Encounter Summary ---
Author Organization [facility] Address [address] [place] [address] Phone Care Team Providers Care Order Analyst Name Role Phone Darryl Carrera MD Primary Care Provider Encounter Details Date Type Department Care Team (Late st Contact Info) Description 04/27/2018 Telephone [facility] Pediatric Cardiology [facility] [address] [place] [address] [place] [address] Candice Orozco Social History Tobacco Use Types Packs/Day Years Used Date Smoking Tobacco: Never Assessed Comments Unknown Sex and Gender Information Value Date Recorded Sex Assigned at Not on file 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
--- OUTSIDE RECORDS SUMMARY | 2025-03-17 14:27 | XMS_ITS | Clinical Summary ---
Author Organization [facility] Address [address] [place] [address] Care Team Providers Care Conditioning Coach Name Role Phone Darryl Carrera MD Primary Care Provider Allergies Active Allergy Reactions Criticality Noted Date Comments Erythromycin Diarrhea,Nausea And Vomiting Low 03/25 Cephalexin Unknown 07/10/2018 Medications levothyroxine (Synthroid) 150 mcg tabletIndications: Congenital hypothyroidism Take 150 mcg by mouth every day Tuesday through Tuesday. Take 1/2 tablet by mouth on Tuesday. 90 tablet 3 5 Active liothyronine (CYTOMEL) 5 mcg tablet Take 1 tablet (5 mcg total) by mouth daily 5 Active PARoxetine (PAXIL) 10 mg tablet Take 1 tablet (10 mg total) by mouth daily 5 Active liraglutide (VICTOZA) 0.6 mg/0.1 mL (18 mg/3 mL) injection Inject 0.6 mg under the skin daily 5 Active Nurtec ODT tablet,disintegrat ing Place under the tongue 5 Active medroxyPROGESTERon e (PROVERA) 10 mg tablet Take 1 tablet (10 mg total) by mouth daily for 10 days If starts to bleed before the 10 days, stop taking it. 10 tablet 5 Active metFORMIN (GLUCOPHAGE) 1,000 mg tabletIndications: PCOS (polycystic ovarian syndrome) Take 1 tablet (1,000 mg total) by mouth 2 (two) times a day with meals 180 tablet 4 5 02/18/20 26 Active metFORMIN (GLUCOPHAGE) 1,000 mg tabletIndications: PCOS (polycystic ovarian syndrome) Take 1 tablet (1,000 mg total) by mouth 2 (two) times a day with meals 60 tablet 4 4 02/23/20 25 Discontin ued(Reord er) Active Problems Problem Noted Date Diagnosed Date Vitamin D insufficiency 11/07/2024 PCOS (polycystic ovarian syndrome) 05/01/2024 Class 1 obesity due to exces s calories without serious comorbidity with body mass index (BMI) of 34.0 to 34.9 in adult 05/09/2023 Congenital hypothyroidism 07/01/2008 Assessment & Plan (07/10/2018 9:57 AM DETECTIVE CHIEF): Outside thyroid function test was checked from May 29 with a TSH of 10.8 agree with increasing levothyroxine dose to 137 mcg daily It is too early to check her thyroid function test today we advised thyroid function test recheck early July with appropriate dose adjustment if needed. Resolved Problems Problem Noted Date Diagnosed Date Resolved Date Polycystic ovary 07/10/2018 05/01/2024 Assessment & Plan (07/10/2018 9:59 AM DETECTIVE CHIEF): Diagnosed and managed by her primary OBGYN She is currently on control pills for irregular menstrual cycle She was placed on metformin in the setting of weight gain and concern for insulin resistance Discussed with patient that she could bring us the records to review laboratory workup, and continue following up with her OBGYN Advised regarding weight loss Pain of lower extremity 08/06/20140 10/2023 Encounters Date Type Department Care Team Description 03/15/[address] [facility] Endocrinology at [address] [phone] Radha Alejandre MD Congenital hypothyroidism (Primary Dx) 03/15/2025 Results Follow-Up [facility] Endocrinology at [facility] [address], [place] [phone] Radha Alejandre MD TSH, T4, free, T3, free 03/13/[address] [facility] Endocrinology at [facility] [address] [place] [phone] Radha Alejandre MD Congenital hypothyroidism (Primary Dx) 03/12/2025 [facility]phone [facility] at [address] [place] [address] Paloma Adkins, RN Test Results 03/11/2025 Telephone [facility] [address] [place] [address] Paloma Adkins RN positive test 12/24/2024 Telephone [facility] [address] [place] [address] Candice Campos LPN Clinic Visit Follow Up 12/17/2024 8:04 PM CDT - 12/17/2024 11:59 PM CDT Hospital Encounter [address] [place] [phone] Well woman exam with routine gynecological exam; Screening for HPV (human papillomavirus) Discharge Disposition: Discharge to home or self care 12/17/2024 1:30 PM CDT Office Visit [facility] at [address] [place] [phone] Brandy Nowak MD Well woman exam with routine gynecological exam (Primary Dx); Screening for HPV (human papillomavirus); Class 1 obesity due to excess calories without serious comorbidity with body mass index (BMI) of 34.0 to 34.9 in adult from Last 3 Months Immunizations Immunization Administration Dates Next Due DTaP 03/04/2004,12/02/1999,02/21/1999 ,1998 Hep A, Pediatric 04/07/2017 Hep B, Adolescent or Pediatric 05/16/1999,1998,1998 Hib (PRP-OMP) 12/02/1999,02/21/1999,1998 IPV 03/04/2004,12/02/1999,1998 MMR 03/04/2004,09/22/1999 Meningococcal Conjugate (Menveo) 06/09/2016 Tdap 09/09/2009 Surgical History Surgery Date Site/Laterality Comments KNEE SURGERY Knee Surgery - (Added by TW Conv) GALLBLADDER SURGERY CHOLECYSTECTOMY Medical History Medical History Date Comments Hx Other Medical Thyroid Hx Other Medical Heart problems Hx Other Medical Cancer Allergy status to unspecifie d drugs, medicaments and biological substances status History of seasonal allergie s - (Added by TW Conv) Anxiety disorder Anxiety - (Adde d by TW Conv) Chronic sinusitis Recurrent sinu s infections - (Added by TW Conv) Disorder of thyroid Thyroid trou ble - (Added by TW Conv) Polycystic ovary syndrome Hypothyroidism Family History Medical History Relation Name Comments Heart defect Maternal Grandfather Heart p roblem - Relation: Grandfather (Added by TW Conv) Relation Name Status Comments Maternal Grandfather Social History Tobacco Use Types Packs/Day Years Used Date Smoking Tobacco: Never Smokeless Tobacco: Never Tobacco Cessation:Counseling Given: Not Answered Comments:Na Alcohol Use Standard Drinks/Week Comments No 0 (1 standard drink = 0.6 oz pur e alcohol) PHQ-2 Answer Date Recorded PHQ-2 Total Score (If total score is 3 or more points, staff should administer the PHQ-9) 0 08/16/2022 Comments No Sex and Gender Information Value Date Recorded Sex Assigned at Not on file Legal Sex Female 3:45 AM DETECTIVE CHIEF Gender Identity Female 09/02/2023 2:05 PM DETECTIVE CHIEF Sexual Orientation Not on file Obstetrics History Last Filed Vital Signs Vital Sign Reading Time Taken Comments Blood Pressure 120/82 12/17/2024 1:49 PM CDT Pulse 97 11/07/2024 8:33 AM CDT Temperature 37 C (98.6 F) 08/16/2022 9:37 AM DETECTIVE CHIEF Respiratory Rate 16 11/07/2024 8:33 AM CDT Oxygen Saturation 98% 11/07/2024 8:33 AM CDT Inhaled Oxygen Concentration - - Weight 93.4 kg (206 lb) 12/17/2024 1:49 PM CDT Height 165.1 cm (5' 5) 12/17/2024 1:49 PM CDT Body Mass Index 34.28 12/17/2024 1:49 PM CDT Plan of Treatment Health Maintenance Due Date Last Done Comments Hepatitis C Screening 1998 Varicella Vaccines (1 of 2 - 13+ 2-dose series) 2011 HPV Vaccines (1 - 3-dose series) 2013 DTaP/Tdap/Td Vaccine (6 - Td or Tdap) 09/09/2019 09/09/2009, 03/04/2004, 12/02/1999, Additional history exists Depression Screening 08/16/2023 08/16/2022 Covid-19 Vaccine ( season) 2024 05/02/2021 Influenza Vaccine (#1) 2025 05/25/2024 Cervical Cancer Screening 12/17/20252024, 12/17/2024, 09/08/2023, Additional history exists Regular Well Visit/Exam 18-64 12/17/2025 12/17/2024, 09/08/2023 Hepatitis B Screening Completed 05/16/1999 , 1998, 1998 Pneumococcal vaccine <65 Aged Out No longer eligible based on patient's age to complete this topic Procedures Procedure Name Priority Date/Time Associated Diagnosis Comments T4, FREE Routine 03/14/2025 2:56 PM CDT Congenital hypothyroidism T3, FREE Routine 03/14/2025 2:56 PM CDT Congenital hypothyroidism TSH Routine 03/14/2025 2:56 PM CDT Congenital hypothyroidism HCG, BLOOD, QUANTITATIVE Routine 03/11/2025 3:19 PM CDT First trimester PROGESTERONE Routine 03/11/2025 3:19 PM CDT First trimester THINPREP PROCESSING (MOLECULAR COMPONENT) Routine 12/17/2024 4:30 PM CDT Well woman exam with routine gynecological exam Screening for HPV (human papillomavirus) HIGH RISK HPV DNA DETECTION WITH GENOTYPING Routine 12/17/2024 4:30 PM CDT Well woman exam with routine gynecological exam Screening for HPV (human papillomavirus) PAP AND HIGH RISK HPV, REFLEX TO GENOTYPING Routine 12/17/2024 2:08 PM CDT Well woman exam with routine gynecological exam Screening for HPV (human papillomavirus) from Last 3 Months Results * T3, free (03/14/2025 2:56 PM CDT) Triiodothyronin e,Free,Serum 3.7 2.0 - 4.4 pg/mL [facility] - 01 Blood 03/14/2025 2:56 PM CDT 03/14/2025 Narrative [facility] - 03/15/2025 12:10 PM CDT Performed at: [address] [place] [id number] Set Up / Operator: Rai Flores PhD, Phone: [phone] Radha Alejandre MD LAB BLOOD ORDERABLES Final R esult Performing Organization Address City/[facility] Co de Phone Number [facility] - * TSH (03/14/2025 2:56 PM CDT) TSH 1.380 0.450 - 4.500 uIU/mL [facility] - 01 Blood 03/14/2025 2:56 PM CDT 03/14/2025 Narrative [facility] - 03/15/2025 11:11 AM CDT Performed at: [address] [place] [id number] Set Up / Operator: Rai Flores PhD, Phone: [phone] Radha Alejandre MD LAB BLOOD ORDERABLES Final R esult Performing Organization Address City/[facility]/ZIP Co de Phone Number [facility] - * T4, free (03/14/2025 2:56 PM CDT) [facility] T4,Free(Direct) 1.11 0.82 - 1.77 ng/dL [facility] - 01 Blood 03/14/2025 2:56 PM CDT 03/14/2025 Narrative [facility] - 03/15/2025 11:11 AM CDT Performed at: [address] [id number] Set Up / Operator: Rai Flores PhD, Phone: [phone] Radha Alejandre MD LAB BLOOD ORDERABLES Final R esult Performing Organization Address City/[facility]/ZIP Co de Phone Number [facility] * Progesterone (03/11/2025 3:19 PM CDT) [facility] Progesterone 19.1 ng/mL [facility] - Comment: Follicular phase 0.1 - 0.9 Luteal phase 1.8 - 23.9 Ovulation phase 0.1 - 12.0 First trimester 11.0 - 44.3 Second trimester 25.4 - 83.3 Third trimester 58.7 - 214.0 Postmenopausal 0.0 - 0.1 Blood 03/11/2025 3:19 PM CDT 03/11/2025 Narrative [facility] - 03/12/2025 8:11 AM CDT Performed at: [address] [id number] Set Up / Operator: Rai Flores PhD, Phone: [phone] Brandy Nowak MD LAB BLOOD ORDERABLES Final Result [facility] - * hCG, blood, quantitative (03/11/2025 3:19 PM CDT) [facility] HCG, quant 396 mIU/mL [facility] - 01 Comment: Female (Non-) 0 - 5 (Postmenopausal) 0 - 8 Female () Weeks of Gestation 3 6 - 71 4 10 - 750 5 533 - 0174 6 356 - 38680 7 [phone] 8 [phone] [phone] 9 [phone] [phone] 10 03556 -409203 12 23657 -770432 14 05590 - 45732 15 34691 - 69926 16 5340 10984 17 2975 - [id number] 18 1873 - 86426 Fay ECLIA methodology Blood 03/11/2025 3:19 PM CDT 03/11/2025 Narrative [facility] - 03/12/2025 8:11 AM CDT Performed at: - [address] [id number] Set Up / Operator: Rai Flores PhD, Phone: [phone] Brandy Nowak MD LAB BLOOD ORDERABLES Final Result Performing Organization Address [facility]/ZIP Co de Phone Number [facility] - 01 * ThinPrep processing (Molecular component) (12/17/2024 4:30 PM CDT) [facility] ThinPrep processing (Molecular component) Specimen received for processing. Endocervical 12/17/2024 4:30 PM CDT 12/17/2024 9:02 PM CDT Brandy Nowak MD LAB BODY FLUIDS AND STOOLS ORDERABLES Final Result Performing Organization Address City/[facility]/ZIP Co de Phone Number [facility] [address] Department [place] [address] * High Risk HPV DNA Detection with Genotyping (Molecular component) (12/17/2024 4:30 PM CDT) Pathologist [facility] HPV HR 16 Not Detected Not Detected HPV HR 18 Not Detected Not Detected [facility] HPV HR Non 16/18 Not Detected Not Detected [facility] Comment: Interpretive Data Nucleic acid amplification for detection of high-risk Human Papilloma virus (HPV) is performed by the Fay Sheldon 4800 HPV test, which specifically detects high-risk HPV-16, 18, 31, 33, 35, 39, 45, 51, 52, 56, 58, 59, 66, and 68 genotypes. This assay has been approved by the [place] Food and Drug Administration for detection of HPV in cervical specimens collected by a physician using an endocervical brush/spatula or cervical broom and placed in the ThinPrep Pap Test PreservCyt collection containers. The performance characteristics of this test have been verified by the [facility]. Correlate with separately reported cytology results, as applicable. Interpretive data last revised 23 Endocervical 12/17/2024 4:30 PM CDT 12/17/2024 9:02 PM CDT Narrative [facility] - 12/19/2024 7:26 PM CDT Clinical history and diagnosis->well woman exam Number of vials->1 Testing type->Screening Last menstrual period (date if known)->11/10/24 Previous positive HPV history?->No Previous negative PAP?->Yes Brandy Nowak MD LAB BODY FLUIDS AND STOOLS ORDERABLES Final Result [place] [address] [facility] Department of Laboratories [place], [place] [id number] * Pap and High Risk HPV and Genotyping (Cytology Component) (12/17/2024 2:08 PM CDT) Endocervical (Pap test) 12/17/2024 2:08 PM CDT 12/18/2024 11:06 AM CDT Narrative [facility] - 12/20/2024 1:43 PM CDT EPIC results best viewed via link to PDF [place] [id number], [place], [place] [address] Tele: Ilsa Malhotra MD - Fish Frog Or Oyster Farmer CYTOLOGY REPORT Note to Patients: This report may contain a detailed description of human tissue sent by a health care provider to the laboratory for pathologic evaluation. The content of this report is essential for diagnosis and may provide important critical findings. This information may be unfamiliar to patients to review without a medical professional present. It is advised that the patient review this report in the presence of a health care provider who can answer questions and explain the details. Patient Name: LE GRAHAM Address: [address] , [place] [address] Gender: F : 2000 (Age: 24) Service: Location: [facility] #: [id number] Patient Type: [facility] SPECIMEN Taken: 12/17/2024 Reported: 12/20/2024 Physician(s): Brandy Nowak MD FINAL DIAGNOSIS: SOURCE OF SPECIMEN - ThinPrep Pap and HPV w/ reflex Genotyping: STATEMENT OF ADEQUACY Source: Cervical/Endocervical - Satisfactory for interpretation - Endocervical /Transformation Zone component present - Case screened using computer assisted imaging technology GENERAL CATEGORIZATION: - Negative for intraepithelial lesion or malignancy INTERPRETATION: - Acute Inflammation lewo/12/20/2024 13:43Cheryl Garcia (ASCP) Report Reviewed and Electronically Signed By Cheryl Garcia ([facility])Clerical Data Follow A; [id number] DIAGNOSIS COMMENT: Ancillary Testing: HPV Genotype 16 - Not Detected Reference Range: Not Detected HPV Genotype 18 - Not Detected Reference Range: Not Detected HPV High Risk Group (31, 33, 35, 39, 45, 51, 52, 56, 58, 59, 66 and 68) - Not Detected Reference Range: Not Detected This test was performed using the SHELDON 4800 CLINICAL DIAGNOSIS AND HISTORY Last Menstrual Period: 11/10/24 REPORT IMAGES AND/OR SCANNED DOCUMENTS ONLY VIEWABLE IN PDF FORMAT The Pap test is a screening test used to aid in the detection of cervical cancer and its precursors. It should not be the sole means by which malignant and premalignant lesions are diagnosed. Both false negative and false positive results may occur. It also has poor sensitivity for the detection of endometrial lesions and should not be used to evaluate suspected endometrial abnormalities. For these reasons it is most important to obtain Pap tests at regular intervals, as recommended by your physician or nurse practitioner. Frozen section, operating room consultation, gross examination and dissection, and case sign out may have been performed in part or completely in the following laboratories: [facility], [facility], [address], [place] [address]. Brandy Nowak MD LAB CYTOLOGY ORDERABLES Fi nal Result [facility] Laboratory [address] [place] [address] from Last 3 Months Additional Health Concerns Infection Onset Date Last Indicated COVID19 Comment:apr 12 2020 08/18/2020 08/17/2020 Insurance [facility]PPO Address: [facility] [address] [id number] [facility] H[facility]/PPO Address: [address] [address] [place] [address] [facility] Advance Directives For more information, please contact: [phone] Documents on File Type Date Recorded Patient Pre K Teacher Expl anation ADVANCE DIRECTIVE 09/14/2018 3:33 PM Care Teams Conditioning Coach Relationship Specialty Start Date End Date Darryl Carrera MD PCP - General 07/05/17
--- OUTSIDE RECORDS SUMMARY | 2025-03-17 14:27 | XMS_ITS | Encounter Summary ---
Author Organization [facility] Healthcare Address [address] [place] [address] Care Team Providers Care Roller Stitcher Name Role Phone Darryl Carrera MD Primary Care Provider Encounter Details Date Type Department Care Team (Latest Contact Info) Description 03/15/2025 Results Follow-Up [facility] Group Endocrinology at [facility] [address] [place] [phone] Radha Alejandre MD [address] [address] TSH, T4, free, T3, free Social History Tobacco Use Types Packs/Day Years Used Date Smoking Tobacco: Never Smokeless Tobacco: Never Comments:Na Alcohol Use Standard Drinks/Week Comments No 0 (1 standard drink = 0.6 oz pur e alcohol) PHQ-2 Answer Date Recorded PHQ-2 Total Score (If total score is 3 or more points, staff should administer the PHQ-9) 0 08/16/2022 Comments No Sex and Gender Information Value Date Recorded Sex Assigned at Not on file Legal Sex Female 3:45 AM EMBEDDED SOFTWARE DEVELOPER Gender Identity Female 09/02/2023 2:05 PM EMBEDDED SOFTWARE DEVELOPER Sexual Orientation Not on file documented as of this encounter Plan of Treatment Not on file documented as of this encounter Visit Diagnoses Not on filedocumented in this encounter Additional Health Concerns Infection Onset Date Last Indicated Resolved Time COVID19 Comment:apr 12 2020 08/18/2020 08/17/2020 documented as of this encounter Care Teams Roller Stitcher Relationship Specialty Start Date End Date Darryl Carrera MD PCP - General 07/05/17 documented as of this encounter
--- OUTSIDE RECORDS SUMMARY | 2025-03-17 14:27 | XMS_ITS | Referral Summary ---
Author Organization [facility] Address [address] [place] [address] Care Team Providers Care Schedule Checker Name Role Phone Darryl Carrera MD Primary Care Provider Encounters Date Type Department Care Team Description 03/15/2025 Orders Only [facility] Endocrinology at [place] [id number] [facility] [address] [place] [address] Radha Alejandre MD Congenital hypothyroidism (Primary Dx) 03/15/2025 Results Follow-Up [facility] Endocrinology at [facility] [address] [facility] [address] [place] [phone] Radha Alejandre MD TSH, T4, free, T3, free 03/13/2025 Orders Only [facility] Endocrinology at [facility] [address] [facility] [address] [place] [phone] Radha Alejandre MD Congenital hypothyroidism (Primary Dx) 03/12/2025 [facility]phone [facility] at [address] [address] Paloma Adkins, RN Test Results 03/11/2025 Telephone [facility] [place] [address] [facility] [address] [place] [address] Paloma Adkins RN positive test 12/24/2024 Telephone [facility] [place] [address] [facility] [address] [place] [address] Candice Campos LPN Clinic Visit Follow Up 12/17/2024 8:04 PM CDT - 12/17/2024 11:59 PM CDT Hospital Encounter [facility] [address] [place] [address] Well woman exam with routine gynecological exam; Screening for HPV (human papillomavirus) Discharge Disposition: Discharge to home or self care 12/17/2024 1:30 PM CDT Office Visit [facility] at [place] [id number] [facility] [address] [place] [address] Brandy Nowak MD Well woman exam with routine gynecological exam (Primary Dx); Screening for HPV (human papillomavirus); Class 1 obesity due to excess calories without serious comorbidity with body mass index (BMI) of 34.0 to 34.9 in adult from Last 3 Months Allergies Active Allergy Reactions Criticality Noted Date [...] 07/01/2008 Assessment & Plan (07/10/2018 9:57 AM ORACLE FINANCIAL APPLICATION DEVELOPER): Outside thyroid function test was checked from [...] 05/01/2024 Assessment & Plan (07/10/2018 9:59 AM ORACLE FINANCIAL APPLICATION DEVELOPER): Diagnosed and managed by her primary OBGYN She is currently on control pills for irregular menstrual cycle She was placed on metformin in the setting of weight gain and concern for insulin resistance Discussed with patient that she could bring us the records to review laboratory workup, and continue following up with her OBGYN Advised regarding weight loss Pain of lower extremity 08/06/201410/2023 Immunizations Immunization Administration Dates Next Due DTaP 03/04/2004,12/02/1999,02/21/1999 ,1998 Hep A, Pediatric 04/07/2017 Hep B, Adolescent or Pediatric 05/16/1999,1998,1998 Hib (PRP-OMP) 12/02/1999,02/21/1999,1998 IPV 03/04/2004,12/02/1999,1998 MMR 03/04/2004,09/22/1999 Meningococcal Conjugate (Menveo) 06/09/2016 Tdap 09/09/2009 Social History Tobacco Use Types Packs/Day Years [...] on file Legal Sex Female 3:45 AM ORACLE FINANCIAL APPLICATION DEVELOPER Gender Identity Female 09/02/2023 2:05 PM ORACLE FINANCIAL APPLICATION DEVELOPER Sexual Orientation Not on file Last Filed Vital Signs Vital Sign Reading Time Taken Comments Blood Pressure 120/82 12/17/2024 1:49 PM CDT Pulse 97 11/07/2024 8:33 AM CDT Temperature 37 C (98.6 F) 08/16/2022 9:37 AM ORACLE FINANCIAL APPLICATION DEVELOPER Respiratory Rate 16 11/07/2024 8:33 AM CDT Oxygen Saturation 98% 11/07/2024 8:33 AM CDT Inhaled Oxygen Concentration - - Weight 93.4 kg (206 lb) 12/17/2024 1:49 PM CDT Height 165.1 cm (5' 5) 12/17/2024 1:49 PM CDT Body Mass Index 34.28 12/17/2024 1:49 PM CDT Plan of Treatment Not on file Procedures Procedure Name Priority Date/Time Associated Diagnosis [...] - 03/15/2025 12:10 PM CDT Performed at: [address] [place] [id number] Litigation Attorney Associate: Rai Flores PhD, Phone: [phone] us Radha Alejandre MD LAB BLOOD ORDERABLES Final R esult [facility] - 01 * TSH (03/14/2025 2:56 PM CDT) TSH 1.380 0.450 - 4.500 uIU/mL [facility] - 01 Blood 03/14/2025 2:56 PM CDT 03/14/2025 Narrative [facility] - 03/15/2025 11:11 AM CDT Performed at: [address] [place] [address] [id number] Litigation Attorney Associate: Rai Flores PhD, Phone: [phone] Result [facility] Radha Alejandre MD LAB BLOOD ORDERABLES Final R esult Performing Organization Address [facility] de Phone Number [facility] - 01 * T4, free (03/14/2025 2:56 PM CDT) [facility] T4,Free(Direct) 1.11 0.82 - 1.77 ng/dL [facility] - 01 Blood 03/14/2025 2:56 PM CDT 03/14/2025 Narrative [facility] - 03/15/2025 11:11 AM CDT Performed at: [address] [place] [address] [id number] Litigation Attorney Associate: Rai Flores PhD, Phone: [phone] Result [facility] Radha Alejandre MD LAB BLOOD ORDERABLES Final R esult Performing Organization Address [facility] de Phone Number [facility] - 01 * Progesterone (03/11/2025 3:19 PM CDT) [facility] Progesterone 19.1 ng/mL [facility] - 01 Comment: Follicular phase 0.1 - 0.9 Luteal phase 1.8 - 23.9 Ovulation phase 0.1 - 12.0 First trimester 11.0 - 44.3 Second trimester 25.4 - 83.3 Third trimester 58.7 - 214.0 Postmenopausal 0.0 - 0.1 Blood 03/11/2025 3:19 PM CDT 03/11/2025 Narrative [facility] - 03/12/2025 8:11 AM CDT Performed at: [address] [place] [id number] Litigation Attorney Associate: Rai Flores PhD, Phone: [phone] Result [facility] Brandy Nowak MD LAB BLOOD ORDERABLES Final Result Performing Organization Address [facility] Co de Phone Number [facility] - * hCG, blood, quantitative (03/11/2025 3:19 PM CDT) [facility] HCG, quant 396 mIU/mL [facility] - Comment: Female (Non-) 0 - 5 (Postmenopausal) 0 - 8 Female () Weeks of Gestation 3 6 - 71 4 10 - 750 5 479 - 0237 6 109 - [phone] 7 [phone] 8 [phone] 9 [phone] 10 99348 -[phone] 12 46789 -[phone] 14 04322 - 49984 15 34272 - 21631 16 3352 - 10175 17 7579 - 45673 18 3013 - 59010 Fay ECLIA methodology Blood 03/11/2025 3:19 PM CDT 03/11/2025 Narrative [facility] - 03/12/2025 8:11 AM CDT Performed at: [address] [id number] Litigation Attorney Associate: Rai Flores PhD, Phone: [phone] Brandy Nowak MD LAB BLOOD ORDERABLES Final Result Performing Organization Address [facility] de Phone Number [facility] - * ThinPrep processing (Molecular component) (12/17/2024 4:30 PM CDT) [facility] ThinPrep processing (Molecular component) Specimen received for processing. Endocervical 12/17/2024 4:30 PM CDT 12/17/2024 9:02 PM CDT Brandy Nowak MD LAB BODY FLUIDS AND STOOLS ORDERABLES Final Result Performing Organization Address [facility]/ZIP Co de Phone Number [facility] [address] [place] [address] * High Risk HPV DNA Detection with Genotyping (Molecular component) (12/17/2024 4:30 PM CDT) HPV HR 16 Not Detected Not Detected HPV HR 18 Not Detected Not Detected [facility] HPV HR Non 16/18 Not Detected Not Detected [facility] Comment: Interpretive Data Nucleic acid amplification for [...] this test have been verified by the [facility]. Correlate with separately reported cytology results, as applicable. Interpretive data last revised 23 Endocervical 12/17/2024 4:30 PM CDT 12/17/2024 9:02 PM CDT Narrative [facility] - 12/19/2024 7:26 PM CDT Clinical history and diagnosis->well woman exam Number of vials->1 Testing type->Screening Last menstrual period (date if known)->11/10/24 Previous positive HPV history?->No Previous negative PAP?->Yes Brandy Nowak MD LAB BODY FLUIDS AND STOOLS ORDERABLES Final Result [facility] [address] Department [place] [address] * Pap and High Risk HPV and Genotyping (Cytology Component) (12/17/2024 2:08 PM CDT) Endocervical (Pap test) 12/17/2024 2:08 PM CDT 12/18/2024 11:06 AM CDT Narrative [facility]OLOGY [facility] - 12/20/2024 1:43 PM CDT EPIC results best viewed via link to PDF [address] [address] Tele: Ilsa Malhotra MD - Recreation Engineer CYTOLOGY REPORT Note to Patients: This report [...] the details. Patient Name: LE GRAHAM Address: [facility] [address], [place] [address] Gender: F : 2000 (Age: 24) Service: Location: N : [id number] [facility] #: [id number] Patient Type: [facility] [place] SPECIMEN Taken: 12/17/2024 Reported: 12/20/2024 Physician(s): Brandy [...] Reviewed and Electronically Signed By Cheryl Garcia (ASCP)Clerical Data Follow A; G0145 DIAGNOSIS COMMENT: Ancillary [...] part or completely in the following laboratories: [facility], [address] [facility], [place] [address] [facility], [address] [place] [address]. [place] Brandy Nowak MD LAB CYTOLOGY ORDERABLES Fi nal Result PATHOLOGY [facility] Laboratory Receiving [address] [place] [address] from Last 3 Months Additional Health Concerns Infection Onset Date Last Indicated COVID19 Comment:apr 12 2020 08/18/2020 08/17/2020 Insurance [facility] CHOICE PLUS [facility] Advance Directives For more information, please contact: [phone] Documents on File Type Date Recorded Patient Sap Specialist Expl anation ADVANCE DIRECTIVE 09/14/2018 3:33 PM Care Teams Schedule Checker Relationship Specialty Start Date End Date Darryl Carrera MD PCP - General 07/05/17
[2025-03-17 14:37] VITALS: BP 119/69; PULSE 110; RESP 16; TEMP 36.3; O2SAT 100
--- OUTSIDE RECORDS SUMMARY | 2025-03-17 15:45 | XMS_ITS | Clinical Summary ---
Author Organization [facility] Address [address] [place] [address] Care Team Providers Care Venture Capital Analyst Name Role Phone Darryl Carrera MD Primary Care Provider Source Comments [facility],non-owned Affiliates and Associated Physician Practices is amultiple site organization consisting of ambulatory clinics and hospital sitesin [place], [place], [place] and [place]. This disclosure is being madepursuant to the Care Everywhere program and may not contain all information available regarding this patient. 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
--- OUTSIDE RECORDS SUMMARY | 2025-03-17 15:45 | XMS_ITS | Referral Summary ---
Author Organization [facility] Address [address] [place] [address] Care Team Providers Care Teradata Solution Architect Name Role Phone Darryl Carrera MD Primary Care Provider Encounters Date Type Department Care Team Description 03/15/2025 Orders Only [facility] Endocrinology at [place] [address] [facility] [address] [place] [phone] Radha Alejandre MD Congenital hypothyroidism (Primary Dx) 03/15/2025 Results Follow-Up [facility] Endocrinology at [facility] [address] [facility] [address] [place] [phone] Radha Alejandre MD TSH, T4, free, T3, free 03/13/2025 Orders Only [facility] Endocrinology at [facility] [address] [facility] [address] [place] [phone] Radha lAejandre MD Congenital hypothyroidism (Primary Dx) 03/12/2025 [facility]phone [facility] at [address] [address] Paloma Adkins, RN Test Results 03/11/[address]25 [address] [facility] [place] [address] [facility] [address] [place] [address] Paloma Adkins RN positive test 12/24/20[address] [facility] [place] [address] [facility] [address] [place] [address] Candice Campos LPN Clinic Visit Follow Up 12/17/2024 8:04 PM CDT - 12/17/2024 11:59 PM CDT Hospital Encounter [facility] [address] [place] [address] Well woman exam with routine gynecological exam; Screening for HPV (human papillomavirus) Discharge Disposition: Discharge to home or self care 12/17/2024 1:30 PM CDT Office Visit [facility] at [place] [address] [facility] [address] [place] [address] Brandy Nowak MD Well woman [...] 07/01/2008 Assessment & Plan (07/10/2018 9:57 AM GATHERING WORKER): Outside thyroid function test was checked from [...] 05/01/2024 Assessment & Plan (07/10/2018 9:59 AM GATHERING WORKER): Diagnosed and managed by her primary OBGYN [...] on file Legal Sex Female 3:45 AM GATHERING WORKER Gender Identity Female 09/02/2023 2:05 PM GATHERING WORKER Sexual Orientation Not on file Last Filed Vital Signs Vital Sign Reading Time Taken Comments Blood Pressure 120/82 12/17/2024 1:49 PM CDT Pulse 97 11/07/2024 8:33 AM CDT Temperature 37 C (98.6 F) 08/16/2022 9:37 AM GATHERING WORKER Respiratory Rate 16 11/07/2024 8:33 AM CDT [...] - 03/15/2025 12:10 PM CDT Performed at: [address] [place] [id number] Annealing Torch Operator: Rai Flores PhD, Phone: [phone] us Radha Alejandre MD LAB BLOOD ORDERABLES Final R esult [facility] - 01 * TSH (03/14/2025 2:56 PM CDT) TSH 1.380 0.450 - 4.500 uIU/mL [facility] - 01 Blood 03/14/2025 2:56 PM CDT 03/14/2025 Narrative [facility] - 03/15/2025 11:11 AM CDT Performed at: [address] [place] [id number] Annealing Torch Operator: Rai Flores PhD, Phone: [phone] Result [facility] Radha Alejandre MD LAB BLOOD ORDERABLES Final R esult Performing Organization Address [facility] de Phone Number [facility] - 01 * T4, free (03/14/2025 2:56 PM CDT) [facility] T4,Free(Direct) 1.11 0.82 - 1.77 ng/dL [facility] - 01 Blood 03/14/2025 2:56 PM CDT 03/14/2025 Narrative [facility] - 03/15/2025 11:11 AM CDT Performed at: [address] [place] [id number] Annealing Torch Operator: Rai Flores PhD, Phone: [phone] Result [facility] Radha Alejandre MD LAB BLOOD ORDERABLES Final R esult Performing Organization Address [facility] de Phone Number [facility] - 01 * Progesterone (03/11/2025 3:19 PM CDT) [facility] Progesterone 19.1 ng/mL [facility] - 01 Comment: Follicular phase 0.1 - 0.9 Luteal phase 1.8 - 23.9 Ovulation phase 0.1 - 12.0 First trimester 11.0 - 44.3 Second trimester 25.4 - 83.3 Third trimester 58.7 - 214.0 Postmenopausal 0.0 - 0.1 Blood 03/11/2025 3:19 PM CDT 03/11/2025 Narrative [facility] - 03/12/2025 8:11 AM CDT Performed at: [address] [place] [address] [id number] Annealing Torch Operator: Rai Flores PhD, Phone: [phone] Result [facility] Brandy Nowak MD LAB BLOOD ORDERABLES Final Result Performing Organization Address [facility] Co de Phone Number [facility] - * hCG, blood, quantitative (03/11/2025 3:19 PM CDT) [facility] HCG, quant 396 mIU/mL [facility] - Comment: Female (Non-) 0 - 5 (Postmenopausal) 0 - 8 Female () Weeks of Gestation 3 6 - 71 4 10 - 750 5 427 - 1364 6 814 - 96799 7 [phone] [phone] 8 99409 -518855 9 18832 -[phone] 10 30799 -[phone] 12 90644 -301812 14 70498 - 72085 15 32419 - 95973 16 3050 - 89486 17 6358 - 43128 18 6426 - 54088 Fay ECLIA methodology Blood 03/11/2025 3:19 PM CDT 03/11/2025 Narrative [facility] - 03/12/2025 8:11 AM CDT Performed at: [address] [id number] Annealing Torch Operator: Rai Flores PhD, Phone: [phone] Brandy Nowak MD LAB BLOOD ORDERABLES Final Result Performing Organization Address [facility] de Phone Number [facility] - * ThinPrep processing (Molecular component) (12/17/2024 4:30 PM CDT) [facility] ThinPrep processing (Molecular component) Specimen received for processing. Endocervical 12/17/2024 4:30 PM CDT 12/17/2024 9:02 PM CDT Brandy Nowak MD LAB BODY FLUIDS AND STOOLS ORDERABLES Final Result Performing Organization Address [facility]/ZIP Co de Phone Number [facility] [address] Department [place] [address] * High Risk HPV DNA Detection with Genotyping (Molecular component) (12/17/2024 4:30 PM CDT) HPV HR 16 Not Detected Not Detected HPV HR 18 Not Detected Not Detected [facility] HPV HR Non 16/18 Not Detected Not Detected [facility] Comment: Interpretive Data Nucleic acid amplification [...] this test have been verified by the [facility]. Correlate with separately reported cytology results, as applicable. Interpretive data last revised 23 Endocervical 12/17/2024 4:30 PM CDT 12/17/2024 9:02 PM CDT Narrative [facility] - 12/19/2024 7:26 PM CDT Clinical history and diagnosis->well woman exam Number of vials->1 Testing type->Screening Last menstrual period (date if known)->11/10/24 Previous positive HPV history?->No Previous negative PAP?->Yes Brnady Nowak MD LAB BODY FLUIDS AND STOOLS ORDERABLES Final Result [facility] [address] Department [place] [address] * Pap and High Risk HPV and Genotyping (Cytology Component) (12/17/2024 2:08 PM CDT) Endocervical (Pap test) 12/17/2024 2:08 PM CDT 12/18/2024 11:06 AM CDT Narrative [facility]OLOGY [facility] - 12/20/2024 1:43 PM CDT EPIC results best viewed via link to PDF [address] [address] Tele: Ilsa Malhotra MD - Size Marker CYTOLOGY REPORT Note to Patients: This report [...] the details. Patient Name: LE GRAHAM Address: [facility] [address], [place] [address] Gender: F : 2000 (Age: 24) Service: Location: N : [id number] [facility] #: [id number] Patient Type: [facility] SPECIMEN Taken: 12/17/2024 Reported: 12/20/2024 Physician(s): Brandy [...] part or completely in the following laboratories: [facility], [address] [facility], [place] [address] [facility], [address] [place] [id number]. us Brandy Nowak MD LAB CYTOLOGY ORDERABLES Fi nal Result PATHOLOGY [facility] Laboratory Receiving [address] [place] [address] from Last 3 Months Additional Health Concerns Infection Onset Date Last Indicated COVID19 Comment:apr 12 2020 08/18/2020 08/17/2020 Insurance [facility] CHOICE PLUS [facility] H[facility]/PPO Address: [facility] [address] [place] [address] [facility] HMO/PPO Address: [address] [address] [place] [address] [employer] [facility] Advance Directives For more information, please contact: [phone] Documents on File Type Date Recorded Patient Cloth Winding Supervisor Expl anation ADVANCE DIRECTIVE 09/14/2018 3:33 PM Care Teams Teradata Solution Architect Relationship Specialty Start Date End Date Darryl Carrera MD PCP - General 07/05/17
--- OUTSIDE RECORDS SUMMARY | 2025-03-17 15:45 | XMS_ITS | Clinical Summary ---
Author Organization [facility] Address [address] [place] [address] Care Team Providers Care Steel Erecting Pusher Name Role Phone Darryl Carrera MD Primary [...] 07/01/2008 Assessment & Plan (07/10/2018 9:57 AM VENDING MANAGER): Outside thyroid function test was checked from [...] 05/01/2024 Assessment & Plan (07/10/2018 9:59 AM VENDING MANAGER): Diagnosed and managed by her primary OBGYN [...] Department Care Team Description 03/15/2025 Orders Only [facility] Medical Group Endocrinology at [address] [phone] Radha Alejandre MD Congenital hypothyroidism (Primary Dx) 03/15/2025 Results Follow-Up [facility] Medical [facility] Endocrinology at [facility] [address] [facility] [address], [place] [phone] Radha Alejandre MD TSH, T4, free, T3, free 03/13/2025 Orders Only [facility] Endocrinology at [facility] [address] [facility] [address] [place] [phone] Radha Alejandre MD Congenital hypothyroidism (Primary Dx) 03/12/2025 Telephone [facility] at [address] [place] [address] Paloma Adkins, RN Test Results 03/11/2025 Telephone [facility] [address] [place] [address] Paloma Adkins RN positive test 12/24/2024 Telephone [facility] [address] [place] [address] Candice Campos LPN Clinic Visit Follow Up 12/17/2024 8:04 PM CDT - 12/17/2024 11:59 PM CDT Hospital Encounter [place] [address] [place] [phone] Well woman exam with routine gynecological exam; Screening for HPV (human papillomavirus) Discharge Disposition: Discharge to home or self care 12/17/2024 1:30 PM CDT Office Visit [facility] at [address] [place] [phone] Brandy Nowak MD Well woman exam [...] on file Legal Sex Female 3:45 AM VENDING MANAGER Gender Identity Female 09/02/2023 2:05 PM VENDING MANAGER Sexual Orientation Not on file Obstetrics History Last Filed Vital Signs Vital Sign Reading Time Taken Comments Blood Pressure 120/82 12/17/2024 1:49 PM CDT Pulse 97 11/07/2024 8:33 AM CDT Temperature 37 C (98.6 F) 08/16/2022 9:37 AM VENDING MANAGER Respiratory Rate 16 11/07/2024 8:33 AM CDT [...] - 03/15/2025 12:10 PM CDT Performed at: [address] [place] [id number] Fleet Manager: Rai Flores PhD, Phone: [phone] Radha Alejandre MD LAB BLOOD ORDERABLES Final R esult Performing Organization Address City/[facility] Co de Phone Number [facility] - * TSH (03/14/2025 2:56 PM CDT) TSH 1.380 0.450 - 4.500 uIU/mL [facility] - 01 Blood 03/14/2025 2:56 PM CDT 03/14/2025 Narrative [facility] - 03/15/2025 11:11 AM CDT Performed at: [address] [place] [id number] Fleet Manager: Rai Flores PhD, Phone: [phone] Radha Alejandre MD LAB BLOOD ORDERABLES Final R esult Performing Organization Address City/[facility]/ZIP Co de Phone Number [facility] - * T4, free (03/14/2025 2:56 PM CDT) [facility] T4,Free(Direct) 1.11 0.82 - 1.77 ng/dL [facility] - 01 Blood 03/14/2025 2:56 PM CDT 03/14/2025 Narrative [facility] - 03/15/2025 11:11 AM CDT Performed at: [address] [id number] Fleet Manager: Rai Flores PhD, Phone: [phone] Radha Alejandre MD LAB BLOOD ORDERABLES Final R esult Performing Organization Address City/[facility]/ZIP Co de Phone Number [facility] * Progesterone (03/11/2025 3:19 PM CDT) [facility] Progesterone 19.1 ng/mL [facility] - Comment: Follicular phase 0.1 - 0.9 Luteal phase 1.8 - 23.9 Ovulation phase 0.1 - 12.0 First trimester 11.0 - 44.3 Second trimester 25.4 - 83.3 Third trimester 58.7 - 214.0 Postmenopausal 0.0 - 0.1 Blood 03/11/2025 3:19 PM CDT 03/11/2025 Narrative [facility] - 03/12/2025 8:11 AM CDT Performed at: [address] [id number] Fleet Manager: Rai Flores PhD, Phone: [phone] Brandy Nowak MD LAB BLOOD ORDERABLES Final Result [facility] - * hCG, blood, quantitative (03/11/2025 3:19 PM CDT) [facility] HCG, quant 396 mIU/mL [facility] - 01 Comment: Female (Non-) 0 - 5 (Postmenopausal) 0 - 8 Female () Weeks of Gestation 3 6 - 71 4 10 - 750 5 866 - 6411 6 436 - 45608 7 [phone] 8 [phone] 9 12502 [phone] 10 [phone] 12 [phone] [phone] 14 99506 - 29347 15 39589 - 31104 16 8940 87002 17 6275 - [phone] 18 [phone] - [phone] Fay ECLIA methodology Blood 03/11/2025 3:19 PM CDT 03/11/2025 Narrative [facility] - 03/12/2025 8:11 AM CDT Performed at: - [address] [id number] Fleet Manager: Rai Flores PhD, Phone: [phone] Brandy Nowak MD LAB BLOOD ORDERABLES Final Result Performing Organization Address [facility]/ZIP Co de Phone Number [facility] - 01 * ThinPrep processing (Molecular component) (12/17/2024 4:30 PM CDT) [facility] ThinPrep processing (Molecular component) Specimen received for processing. Endocervical 12/17/2024 4:30 PM CDT 12/17/2024 9:02 PM CDT Brandy Nowak MD LAB BODY FLUIDS AND STOOLS ORDERABLES Final Result Performing Organization Address City/[facility]/ZIP Co de Phone Number [facility] [address] Department [place] [address] * High Risk HPV DNA Detection with Genotyping (Molecular component) (12/17/2024 4:30 PM CDT) Pathologist [facility] HPV HR 16 Not Detected Not Detected HPV HR 18 Not Detected Not Detected [facility] HPV HR Non 16/18 Not Detected Not Detected [facility] Comment: Interpretive Data Nucleic acid amplification for [...] this test have been verified by the [facility]. Correlate with separately reported cytology results, as applicable. Interpretive data last revised 23 Endocervical 12/17/2024 4:30 PM CDT 12/17/2024 9:02 PM CDT Narrative [facility] - 12/19/2024 7:26 PM CDT Clinical history and diagnosis->well woman exam Number of vials->1 Testing type->Screening Last menstrual period (date if known)->11/10/24 Previous positive HPV history?->No Previous negative PAP?->Yes Brandy Nowak MD LAB BODY FLUIDS AND STOOLS ORDERABLES Final Result [place] [address] [facility] Department of Laboratories [place], [place] [phone] * Pap and High Risk HPV and Genotyping (Cytology Component) (12/17/2024 2:08 PM CDT) Endocervical (Pap test) 12/17/2024 2:08 PM CDT 12/18/2024 11:06 AM CDT Narrative PATHOLOGY [facility] - 12/20/2024 1:43 PM CDT EPIC results best viewed via link to PDF [place] [id number] [facility], [place], [place] [address] Tele: Ilsa Malhotra MD - Manager Of Sales CYTOLOGY REPORT Note to Patients: This report [...] Name: LE GRAHAM Address: [address] , [place] [address] Gender: F : 2000 (Age: 24) Service: Location: [facility] #: [id number] Patient Type: [facility] SPECIMEN Taken: 12/17/2024 Reported: 12/20/2024 Physician(s): Brandy [...] Reviewed and Electronically Signed By Cheryl Garcia ([facility])Clerical Data Follow A; G0145 DIAGNOSIS COMMENT: Ancillary [...] part or completely in the following laboratories: [facility], [facility], [address], [place] [address]. Brandy Nowak MD LAB CYTOLOGY ORDERABLES Fi nal Result PATHOLOGY [facility] Laboratory Receiving [address] [place] [address] from Last 3 Months Additional Health Concerns Infection Onset Date Last Indicated COVID19 Comment:apr 12 2020 08/18/2020 08/17/2020 Insurance [facility] CHOICE PLUS [place] [id number] [facility] [employer] [facility] [employer] Advance Directives For more information, please contact: [phone] Documents on File Type Date Recorded Patient Commercial Subcontractor Expl anation ADVANCE DIRECTIVE 09/14/2018 3:33 PM Care Teams Steel Erecting Pusher Relationship Specialty Start Date End Date Darryl Carrera MD PCP - General 07/05/17
--- OUTSIDE RECORDS SUMMARY | 2025-03-17 15:45 | XMS_ITS | Encounter Summary ---
Author Organization [facility] Healthcare Address [address] [place] [address] Care Team Providers Care Manager Energy Name Role Phone Darryl Carrera MD Primary Care Provider Encounter Details Date Type Department Care Team (Latest Contact Info) Description 03/15/2025 Results Follow-Up [facility] Medical Group Endocrinology at [facility] [address] 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
--- OUTSIDE RECORDS SUMMARY | 2025-03-17 15:45 | XMS_ITS | Encounter Summary ---
Author Organization [facility] Address [address] [place] [address] Phone Care Team Providers Care Parts Counterman Name Role Phone Darryl Carrera MD Primary Care Provider Encounter Details Date Type Department Care Team (Late st Contact Info) Description 04/27/2018 Telephone [facility] Pediatric Cardiology [facility] [address] [place] [address] [place] [address] Candice Orozoc Social History Tobacco Use Types Packs/Day Years Used Date Smoking Tobacco: Never Assessed Comments Unknown Sex and Gender Information Value Date Recorded Sex Assigned at Not on file Legal Sex Female 3:45 AM PSYCHIATRIC AIDE INSTRUCTOR Gender Identity Female 09/02/2023 2:05 PM PSYCHIATRIC AIDE INSTRUCTOR Sexual Orientation Not on file documented as of this encounter Plan of Treatment Not on file documented as of this encounter Visit Diagnoses Not on filedocumented in this encounter Additional Health Concerns Infection Onset Date Last Indicated Resolved Time COVID19 Comment:apr 12 2020 08/18/2020 08/17/2020 documented as of this encounter Care Teams Parts Counterman Relationship Specialty Start Date End Date Darryl Carrera MD PCP - General 07/05/17 documented as of this encounter
--- NOTE | 2025-03-17 16:19 | ED.PREGNANCY ---
HPI - General Chief complaint: Vaginal Bleeding Stated complaint: cramping, 5 weeks Time Seen by Provider: 03/17/25 15:17 History of Present Illness HPI Narrative: Patient is 24-year-old female presents to the ER complaints of abdominal cramping and intermittent sharp lower quadrant pains. She reports she is approximately 5 weeks but has not had her 1st OBGYN appointment yet. Patient reports her symptoms started last evening. She is anxious because she reports ?we've been trying for 2 years and finally got . Patient endorses a history of PCOS and takes metformin. She also endorses a history of hypothyroidism and is medicated for this also. Patient endorses urinary frequency, but denies burning or urgency. She denies any back pain, recent fevers, or abnormal vaginal discharge. Related Data Home Medications ?Medication ?Instructions ?Recorded ?Confirmed ?Last Taken ?Type liraglutide 0.6 mg/0.1 mL (18 mg/3 mg subcut 04/12/20 05/17/22 Unknown History mL) subcutaneous pen injector ([employer] Mediatoza 3-Davis) metformin 500 mg tablet 500 mg PO TID 12/30/20 05/17/22 Unknown History Allergies Allergy/AdvReac Type Severity Reaction Status Date / Time cephalexin (From Keflex) Allergy Mild Unknown Verified 08/14/24 11:44 Cephalosporins AdvReac Unknown GI UPSET Verified 08/14/24 11:44 erythromycin base AdvReac Unknown GI UPSET Verified 08/14/24 11:44 Review of Systems Review of Systems: All systems reviewed & are unremarkable except as noted in HPI and below PMFSH Past Medical History Medical History Left knee injury Hx of migraines PCOS (polycystic ovarian syndrome) Hypothyroidism Surgical History Surgical History History of tonsillectomy History of cholecystectomy Family History Family History Other CAD (coronary artery disease) Heart disease Social History Social History Smoking status: Never smoker Alcohol intake: current Alcohol use details: Social Substance use: never Gender identity (if verbalized by the patient): Female Exam Narrative: GENERAL: Well appearing, well-nourished, non-toxic, in no acute distress. HEAD: Normocephalic, atraumatic. NECK: Supple. No adenopathy, no masses. RESPIRATORY: Airway patent, respirations nonlabored. Clear to auscultation bilaterally, no rales, rhonchi, wheezing. CARDIOVASCULAR: Regular rate and rhythm without murmurs, rubs, or gallops. Peripheral pulses 2+ and equal bilaterally. ABDOMINAL: Soft, nontender, nondistended, no hepatosplenomegaly. Normoactive BS. MUSCULOSKELETAL: Moves all extremities. Strength/ROM intact without gross deformities. SKIN: Warm, dry, normal color. No rashes. NEURO: A&O X3. Speech clear. Cranial nerves II-XII intact. No ataxic movements. PSYCHIATRIC: Appropriate mood and affect. Normal interaction. Course Vital Signs Vital signs: Vital Signs Temperature 36.3 C L 03/17/25 14:37 Pulse Rate 110 H 03/17/25 14:37 Respiratory Rate 16 03/17/25 14:37 Blood Pressure 119/69 03/17/25 14:37 Pulse Oximetry 100 03/17/25 14:37 Oxygen Delivery Room Air 03/17/25 14:37 Temperature 36.3 C L 03/17/25 14:37 Pulse Rate 110 H 03/17/25 14:37 Respiratory Rate 16 03/17/25 14:37 Blood Pressure 119/69 03/17/25 14:37 Pulse Oximetry 100 03/17/25 14:37 Oxygen Delivery Room Air 03/17/25 14:37 MDM - OB/Uterine Contractions MDM Narrative Medical decision making narrative: Patient is 24-year-old female presents to the ER complaints of abdominal cramping and intermittent sharp lower quadrant pains. She reports she is approximately 5 weeks but has not had her 1st OBGYN appointment yet. Patient reports her symptoms started last evening. She is anxious because she reports ?we've been trying for 2 years and finally got . Patient endorses a history of PCOS and takes metformin. She also endorses a history of hypothyroidism and is medicated for this also. Patient endorses urinary frequency, but denies burning or urgency. She denies any back pain, recent fevers, or abnormal vaginal discharge. Labs Ordered: CBC, CMP, PTT, INR, hCG, UA Imaging Ordered: Ultrasound Ob transvaginal Medications Ordered: 1 L normal saline IV bolus Results: Pt's US indicates Intrauterine of uncertain viability. pole not identified, possibly due to early gestational age. Small subchorionic hemorrhage. Endometrial cavity fluid, possibly representing blood, correlate for vaginal bleeding. Estimated Gestational Age: 5 weeks, 2 days by mean gestational sac diameter. ADIEL by ultrasound 11/15/2025. Diagnosis: Threatened , abdominal cramping during Consults: OBGYN ([facility]), outpatient Patient Education/Shared MDM: Results of lab work and imaging shared with patient. She was strongly advised to maintain hydration status upon discharge and follow-up with her OBGYN tomorrow. She will not be discharged home with any new prescriptions. Strict return precautions provided. Patient verbalized understanding and is in agreement with plan. Vital signs stable at time of discharge. All questions answered. Differential Diagnosis Differential diagnosis: Likely other (threatened miscarriage, UTI, incomplete ) Lab Data Attestation: I reviewed the patient's lab results. 03/17/25 16:37 03/17/25 16:37 Labs: Lab Results 03/17/25 Range/Units 16:37 WBC 11.0 H (4.5-10.0) K/mm3 RBC 4.74 (4.2-5.4) M/mm3 Hgb 14.1 (12.0-15.0) g/dL Hct 41.6 (37.0-47.0) % MCV 87.8 (80-100) fl MCH 29.7 (26-34) pg MCHC 33.9 (32-36) g/dl RDW 12.4 (11.5-14.5) % Plt Count 363 (150-375) k/mm3 MPV 9.6 (7.4-10.4) fl Immature Gran % (Auto) 0.3 (0-0.5) % Neut % (Auto) 63.8 (45.5-73.1) % Lymph % (Auto) 26.0 (18.3-44.2) % [place] % (Auto) 6.8 (2.6-8.5) % Eos % (Auto) 2.6 (0-4.4) % Baso % (Auto) 0.5 (0.2-1.2) % Lymph # (Auto) 2.85 (0.9-3.2) K/mm3 [place] # (Auto) 0.7 H (0.1-0.6) K/mm3 Eos # (Auto) 0.3 (0-0.3) K/mm3 Baso # (Auto) 0.1 (0.0-0.1) K/mm3 Abs Immat Gran (auto) 0.03 (0.00-0.031) K/mm3 Absolute Neuts (auto) 7.0 H (1.3-6.7) K/mm3 Absolute Nucleated RBC 0.000 (0.0-0.012) K/mm3 Nucleated RBC % 0.0 (0.0-0.2) % PT 11.8 (11.1-14.7) Seconds INR 0.8 APTT 22.1 L (22.3-36.8) Seconds Sodium 137 (137-145) mmol/L Potassium 3.8 (3.4-5.0) mmol/L Chloride 104 (98-107) mmol/L Carbon Dioxide 23 (22-30) mmol/L Anion Gap 10 (4-12) mmol/L BUN 8 (7-17) mg/dL Creatinine 0.67 L (0.7-1.0) mg/dL Estim Creat Clear Calc 124 ml/min Estimated GFR > 60 (59 - ) Glucose 92 (65-110) mg/dL Calcium 9.7 (8.4-10.2) mg/dL Total Bilirubin 0.4 (0.2-1.3) mg/dL AST 39 H (14-36) U/L ALT 35 (6-35) U/L Alkaline Phosphatase 76 (38-126) U/L Total Protein 8.3 H (6.3-8.2) g/dL Albumin 4.6 (3.5-5.1) g/dL Beta HCG, Quant 6181.70 mIU/ML Urine Color Yellow (Yellow) Urine Appearance Cloudy H (Clear) Urine pH 6.5 (5.0-9.0) Ur Specific Holden 1.005 (1.001-1.035) Urine Protein Negative (Negative) mg/dL Urine Glucose (UA) Negative (Negative) mg/dL Urine Ketones Negative (Negative) mg/dL Ur Blood (Man) Negative (Negative) Urine Nitrate Negative (Negative) Urine Bilirubin Negative (Negative) Urine Urobilinogen 0.2 (<2.0) mg/dL Leukocyte Esterase Rfl Negative (Negative) COSME/UL Urine RBC 0-2 (0-2) /hpf Urine WBC 0-5 (0-3) /hpf Ur Squamous Epith Cells None seen (Few) /hpf Urine Bacteria None seen /hpf Urine Casts 0-2 Imaging Data Attestation: I personally reviewed and interpreted this imaging study as follows: Radiologist's impression: Impressions Transvaginal US 03/17/25 17:25 IMPRESSION: Intrauterine of uncertain viability. pole not identified, possibly due to early gestational age. Small subchorionic hemorrhage. Endometrial cavity fluid, possibly representing blood, correlate for vaginal bleeding. Estimated Gestational Age: 5 weeks, 2 days by mean gestational sac diameter. ADIEL by ultrasound 11/15/2025. Discharge Plan Discharge Clinical Impression: Abdominal cramping affecting , Threatened Patient Disposition: Home Condition: Stable Instructions: Antibiotic Form, (ED) Additional Instructions: Please return to the ER with any worsening symptoms. Follow-up with your OBGYN as soon as possible. Take all medications as prescribed, including regularly scheduled medications. Patient Language: Iraqi Prescriptions: No Action metformin 500 mg tablet 500 mg PO TID ondansetron 4 mg tablet,disintegrating 4 mg PO Q8H PRN (Reason: nausea and vomiting) Qty: 14 0RF levofloxacin 750 mg tablet 750 mg PO DAILY Qty: 6 0RF acetaminophen 500 mg tablet 1,000 mg PO TID PRN (Reason: rudy) 7 Days Qty: 42 0RF ibuprofen 800 mg tablet 800 mg PO TID PRN (Reason: pain) 7 Days Qty: 21 0RF Victoza 3-Davis 0.6 mg/0.1 mL (18 mg/3 mL) pen injector SUBCUT ibuprofen 400 mg tablet 400 mg PO TID PRN (Reason: fever or pain) 10 Days Qty: 30 0RF levothyroxine [Synthroid] 150 mcg tablet 150 mcg PO DAILY Qty: 90 1RF Follow-up/Referrals: Carrera,Darryl Zavala MD [Primary Care Provider] - Marv Arias MD [Physician] - (OBGYN) Time of Disposition: 19:02
--- NOTE | 2025-03-17 16:42 | PC.NURSE ---
Unsuccessful IV attempt x 1, but able to obtain/send labs. Pt to US at this time, will obtain IV and start fluids when pt returns.
[2025-03-17 16:47] LABS: Hematocrit 41.6 % (37.0-47.0); Hemoglobin 14.1 g/dL (12.0-15.0); Immature Granulocyte Percent A 0.3 % (0-0.5); Lymphocytes Absolute Auto 2.85 K/mm3 (0.9-3.2); Mean Corpuscular HGB Conc 33.9 g/dl (32-36); Mean Corpuscular Hemoglobin 29.7 pg (26-34); Mean Corpuscular Volume 87.8 fl (80-100); Nucleated Red Blood Cells Absolute Auto 0.000 K/mm3 (0.0-0.012); Nucleated Red Blood Cells Perc 0.0 % (0.0-0.2); Platelet Count Result 363 k/mm3 (150-375); Red Blood Count 4.74 M/mm3 (4.2-5.4); White Blood Count 11.0 K/mm3 (4.5-10.0)
[2025-03-17 16:52] LABS: Add Urine Microscopic? YES; Appearance Urine Cloudy (Clear); Glucose Urine UA Negative (Negative); Leukocyte Esterase Ur Negative LEU/UL (Negative); Nitrate Urine Negative (Negative); Non Pathogenic Casts 0-2; Specific Grav Ur 1.005 (1.001-1.035)
[2025-03-17 17:02] LABS: INR 0.8; Prothrombin Time 11.8 Seconds (11.1-14.7)
[2025-03-17 17:03] LABS: Partial Thromboplastin Time 22.1 Seconds (22.3-36.8)
[2025-03-17 17:16] LABS: Alanine Aminotransferase 35 U/L (6-35); Albumin Level 4.6 g/dL (3.5-5.1); Alkaline Phosphatase 76 U/L (38-126); Anion Gap 10 mmol/L (4-12); Aspartate Amino Transferase 39 U/L (14-36); Bilirubin,Total 0.4 mg/dL (0.2-1.3); Blood Urea Nitrogen 8 mg/dL (7-17); Calcium 9.7 mg/dL (8.4-10.2); Carbon Dioxide 23 mmol/L (22-30); Chloride 104 mmol/L (98-107); Estimated CRCL calculation 124 ml/min; Estimated Glomerular Filt Rate > 60; Glucose 92 mg/dL (65-110); Potassium 3.8 mmol/L (3.4-5.0); Sodium 137 mmol/L (137-145); Total Protein 8.3 g/dL (6.3-8.2)
[2025-03-17] MEDS: SODIUM CHLORIDE 0.9% IV 1,000 ML 999 ML IV CONT (17:30)
[2025-03-17 17:35] LABS: Beta HCG Quantitative 6181.70 mIU/ML
[2025-03-17 19:02] VITALS: BP 110/68; PULSE 92; RESP 20; O2SAT 97
--- NOTE | 2025-03-17 19:21 | PC.NURSE ---
Pt reports she will be following up with OB at [facility]. Blood bank specimens were hemolyzed, pt aware, will be having labs at her OB appointment with [facility].
== END 2025-03-17 19:23 | disposition home or self-care (01) ==
PROVIDERS: Emergency Provider Registered Nurse; PCP Internal Medicine
DX: O26.891 Other specified pregnancy related conditions, first trimester (principal); R10.31 Right lower quadrant pain; R10.32 Left lower quadrant pain; O20.0 Threatened abortion; O99.281 Endocrine, nutritional and metabolic diseases complicating pregnancy, first trimester; E28.2 Polycystic ovarian syndrome; E03.9 Hypothyroidism, unspecified; Z90.49 Acquired absence of other specified parts of digestive tract; Z3A.01 Less than 8 weeks gestation of pregnancy; Z79.84 Long term (current) use of oral hypoglycemic drugs; Z79.85 Long-term (current) use of injectable non-insulin antidiabetic drugs; Z79.899 Other long term (current) drug therapy
CPT/HCPCS: 36415; 76817; 80053; 81001; 84702; 85025; 85610; 85730; 96360; 99284; J7030

== ENCOUNTER 2025-05-15 12:32 | Emergency (ER) | payer BC, SELFPAY ==
--- NOTE | ~2025-05-15 | US_ITS ---
EXAMINATION: US OB <= 14 weeks fetus DATE: 05/15/2025 14:44 INDICATION: Vaginal bleeding and abdominal cramping TECHNIQUE: Real-time pelvic ultrasound utilizing both a transvaginal and transabdominal probe was performed. The interpreting radiologist was not present for the study. COMPARISON: None. FINDINGS: The uterus measures 13.1 x 7.5 x 10.2 cm. There is an intrauterine gestational sac.There is a single living intrauterine fetus. The crown rump length measures 7.9 cm, which correlates with an estimated gestational age of 14 weeks and 0 days. heart motion is identified measuring 148 beats per minute (bpm) by M-mode Doppler. The bilateral ovaries are not visualized. There is no free fluid in the pelvis. IMPRESSION: 1. Single living fetus with heart rate of 148 bpm. 2. Gestational age by ultrasound of 14 weeks 0 day(s) +/- 1 week and 2 days with ultrasound estimated date of delivery (ADIEL) of 11/13/2025. Reviewed, dictated and finalized at location A. IMPRESSION: 1. Single living fetus with heart rate of 148 bpm. 2. Gestational age by ultrasound of 14 weeks 0 day(s) +/- 1 week and 2 days wi th ultrasound estimated date of delivery (ADIEL) of 11/13/2025.
[2025-05-15 12:37] VITALS: BP 126/68; PULSE 102; RESP 18; TEMP 36.7; O2SAT 100
--- OUTSIDE RECORDS SUMMARY | 2025-05-15 12:39 | XMS_ITS | Encounter Summary ---
Author Organization [facility] Healthcare Address [address] [place] [address] Care Team Providers Care Receptionist Secretary Name Role Phone Darryl Carrera MD Primary Care Provider Encounter Details Date Type Department Care Team (Latest Contact Info) Description 03/15/2025 Results Follow-Up [facility] Medical Group Endocrinology at [facility] [address] [facility] [address] [place] [phone] Radha Alejandre MD [address] [facility] [address], [place] [address] TSH, T4, free, T3, free Social [...] on file Legal Sex Female 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
--- OUTSIDE RECORDS SUMMARY | 2025-05-15 12:39 | XMS_ITS | Clinical Summary ---
Author Organization [facility] [employer] Address [address] [place] [address] Care Team Providers Care Bridge Manager Name Role Phone Darryl Carrera MD Primary Care Provider [phone] Source Comments [facility] [employer],non-owned Affiliates and Associated Physician Practices is amultiple site organization consisting of ambulatory clinics and hospital sitesin [place], [place], [place] and [place]. This disclosure is being madepursuant to the Care Everywhere program and may not contain all information available regarding this patient. Last updated 18.[facility] [employer] Social History Tobacco Use Types Packs/Day Years Used Date Smoking Tobacco: Never Assessed Comments Unknown Sex and Gender Information Value Date Recorded Sex Assigned at Not on file Legal Sex Female 8:29 AM TESTING AND REGULATING CHIEF Gender Identity Not on file Sexual Orientation Not on file Plan of Treatment Health Maintenance Due Date Last Done Comments HIV SCREENING 2013 HPV VACCINE (1 - 3-dose series) 2013 HEPATITIS C SCREENING 08/06/2016 DTAP/TDAP/TD VACCINES (1 - Tdap) 2017 HEPATITIS B VACCINE (1 of 3 - 19+ 3-dose series) 2017 DEPRESSION SCREENING 08/29/2024 COVID-19 VACCINE (2 - 2024-2 6 season) 2025 05/02/2021 INFLUENZA VACCINE (#1) 2025 06/25/2022 PAP SMEAR [...] patient's age to complete this topic Insurance [facility] Care Teams Bridge Manager Relationship Specialty Start Date End Date Darryl Carrera MD [address] [place] [id number] PCP - General 09/27/18
--- OUTSIDE RECORDS SUMMARY | 2025-05-15 12:39 | XMS_ITS | Encounter Summary ---
Author Organization [facility] Address [address] [place] [address] Care Team Providers Care Head Bellhop Captain Name Role Phone Darryl Carrera MD Primary Care Provider Encounter Details Date Type Department Care Team (Late st Contact Info) Description 04/24/2025 Results [facility] [place] [address] [address] [address] [place] [address] Gladys Hou, WILLIE [address] [facility] [address] [place], [place] [id number] N. gonorrhoeae/C. trachomatis Amplification Urine, Trichomonas vaginalis PCR Urine, PANORAMA TEST, Urine culture Urine, clean voided Social History Tobacco Use Types Packs/Day Years Used Date Smoking Tobacco: Never Smokeless Tobacco: Never Comments:Na Alcohol Use Standard Drinks/Week Comments No 0 (1 standard drink = 0.6 oz pur e alcohol) PHQ-2 Answer Date Recorded PHQ-2 Total Score (If total score is 3 or more points, staff should administer the PHQ-9) 0 08/16/2022 Estimated Date of Delivery Comme nts Yes 11/14/2025 Based on Ultraso und Sex and Gender Information Value Date Recorded Sex Assigned at Not on file Legal Sex Female 3:45 AM HOSPITAL UNIT COORDINATOR Gender Identity Female 09/02/2023 2:05 PM HOSPITAL UNIT COORDINATOR Sexual Orientation Not on file documented as of this encounter Plan of Treatment Not on file documented as of this encounter Visit Diagnoses Not on filedocumented in this encounter Additional Health Concerns Infection Onset Date Last Indicated Resolved Time COVID19 Comment:apr 12 2020 08/18/2020 08/17/2020 documented as of this encounter Care Teams Head Bellhop Captain Relationship Specialty Start Date End Date Darryl Carrera MD PCP - General 07/05/17 documented as of this encounter
--- OUTSIDE RECORDS SUMMARY | 2025-05-15 12:39 | XMS_ITS | Clinical Summary ---
Author Organization [facility] Address [address] [place] [address] Care Team Providers Care Lab Director Name Role Phone Darryl Carrera MD Primary Care Provider Allergies Active Allergy Reactions Criticality Noted Date Comments Erythromycin Diarrhea,Nausea And Vomiting Low 03/25 Cephalexin Unknown 07/10/2018 [facility]at [facility] Place under the tongue 5 Active metFORMIN (GLUCOPHAGE) 1,000 mg tabletIndications: PCOS (polycystic ovarian syndrome) Take 1 tablet (1,000 mg total) by mouth 2 (two) times a day with meals 180 tablet 4 5 026 Active progesterone (PROMETRIUM) 200 mg capsule Take 1 capsule (200 mg total) by mouth nightly 30 capsule 3 5 Active liothyronine (CYTOMEL) 5 mcg tablet Take 2 tablets by mouth daily 180 tablet 1 5 Active levothyroxine (Synthroid) 150 mcg tabletIndications: Congenital hypothyroidism Take 1 tablet by mouth every day Tuesday through Tuesday and 1/2 of a tablet on Tuesday and Tuesday 90 tablet 1 5 Active escitalopram (LEXAPRO) 10 mg tablet Take 1 tablet (10 mg total) by mouth daily 30 tablet 2 5 Active PARoxetine (PAXIL) 10 mg tablet Take 1 tablet (10 mg total) by mouth daily 5 Discontin ued(Thera py completed ) liraglutide (VICTOZA) 0.6 mg/0.1 mL (18 mg/3 mL) injection Inject 0.6 mg under the skin daily 5 Discontin ued(Thera py completed ) azithromycin (ZITHROMAX) 250 mg tablet TAKE 2 TABLETS BY MOUTH TODAY, THEN TAKE 1 TABLET DAILY FOR 4 DAYS DIRECTED 5 Discontin ued(Thera py completed ) methylPREDNISolone (MEDROL DOSEPACK) 4 mg Dosepack TAKE 6 TABLETS ON DAY 1 DIRECTED ON PACKAGE AND DECREASE BY 1 TAB EACH DAY FOR A TOTAL OF 6 DAYS Discontin ued(Thera py completed ) Active Problems Problem Noted Date Diagnosed Date Dehydration 04/23/2025 Dysuria 04/23/2025 Food poisoning 04/23/2025 Gastroenteritis 04/23/2025 Pyelonephritis 04/23/2025 Abdominal cramping affecting UTI (urinary tract infection) 04/23/2025 Vitamin D insufficiency 11/07/2024 PCOS (polycystic ovarian syndrome) 05/01/2024 Class 1 obesity due to exces s calories without serious comorbidity with body mass index (BMI) of 34.0 to 34.9 in adult 05/09/2023 Congenital hypothyroidism 07/01/2008 Assessment & Plan (07/10/2018 9:57 AM SECTION LEADER AND MACHINE SETTER): Outside thyroid function test was checked from May 29 with a TSH of 10.8 agree with increasing levothyroxine dose to 137 mcg daily It is too early to check her thyroid function test today we advised thyroid function test recheck early July with appropriate dose adjustment if needed. Estimated Date of Delivery Comme nts Yes 11/14/2025 Based on Ultraso und Resolved Problems Problem Noted Date Diagnosed Date Resolved Date Polycystic ovary 07/10/2018 05/01/2024 Assessment & Plan (07/10/2018 9:59 AM SECTION LEADER AND MACHINE SETTER): Diagnosed and managed by her primary OBGYN She is currently on control pills for irregular menstrual cycle She was placed on metformin in the setting of weight gain and concern for insulin resistance Discussed with patient that she could bring us the records to review laboratory workup, and continue following up with her OBGYN Advised regarding weight loss Pain of lower extremity 08/06/2014 09/0 10/2023 Encounters Date Type Department Care Team Description 04/24/2025 Results [facility] at [address] [place] [address] Gladys Hou, WILLIE N. gonorrhoeae/C. trachomatis Amplification Urine, Trichomonas vaginalis PCR Urine, PANORAMA TEST, Urine culture Urine, clean voided 04/23/2025 12:25 PM CDT Lab [address] [place] [address] 10 weeks gestation of ; Encounter for supervision of normal first in first trimester; Screening examination for STD (sexually transmitted disease); Congenital hypothyroidism 04/23/2025 11:30 AM CDT Office Visit [facility] [address] [place] [address] Gladys Hou NP 10 weeks gestation of (Primary Dx); Congenital hypothyroidism; Class 1 obesity due to excess calories without serious comorbidity with body mass index (BMI) of 34.0 to 34.9 in adult; Encounter for supervision of normal first in first trimester; Screening examination for STD (sexually transmitted disease); Encounter for screening for chromosomal anomalies 04/23/2025 11:00 AM CDT Clinical Support [facility] [address] [place] [address] with inconclusive viability, single or unspecified fetus (Primary Dx) 04/22/2025 Telephone [facility] [address] [place] [address] Candice Campos LPN 04/05/2025 Orders Only [facility] Endocr[facility] at [address] [place] [address] [phone] Cecilia Alcaraz LPN Congenital hypothyroidism 03/18/2025 Telephone [facility] at [address] [place] [phone] Paloma Adkins, RN Problem 03/15/2025 Orders Only [facility] Endocr[facility] at [address] [place] [address] [phone] Radha Alejandre MD Congenital hypothyroidism (Primary Dx) 03/15/2025 Results Follow-Up [facility] Endocrinology at [address] [place] [address] [phone] Radha Alejandre MD TSH, T4, free, T3, free 03/13/2025 Orders Only [facility] End[facility] at [address] [place] [address] [phone] Radha Alejandre MD Congenital hypothyroidism (Primary Dx) 03/12/2025 Telephone [facility] at [address] [place] [phone] Paloma Adkins RN Test Results 03/11/2025 Telephone [facility] at [address] [place] [phone] Paloma Adkins RN positive test from Last 3 Months Immunizations Immunization Administration [...] Recurrent sinu s infections - (Added by Conv) Disorder of thyroid Thyroid trou ble - (Added by Conv) Polycystic ovary syndrome Hypothyroidism Family History Medical History Relation Name Comments Heart defect Maternal Grandfather Heart p roblem - Relation: Grandfather (Added by Conv) Relation Name Status Comments Maternal Grandfather [...] on file Legal Sex Female 3:45 AM SECTION LEADER AND MACHINE SETTER Gender Identity Female 09/02/2023 2:05 PM SECTION LEADER AND MACHINE SETTER Sexual Orientation Not on file Obstetrics History Para Term AB IAB SAB Ectopic Multiple Livin g Live Births 1 Date Outcome GA Total Labor Labor/2nd/3rd Weight Sex Type Anes PTL Zaina A1 A5 Name Clin Current Summary Episode Dates Number of Fetuses Estimated Date of Delivery 04/23/2025 - Present (05/15/2025) 11/14/2025 (set by Hema Hou NP on 04/23/2025 based on Ultrasound on 04/23/2025) Dating Summary Based On ADIEL GA Diff Last Menstrual Period on 01/13/2025 10/20/2025 +3w4d Ultrasound on 04/23/2025 11/14/2025 Working GA:10w5d Vitals Pregravid Weight Height TWG (As of 05/15/2025) Pregrav id BMI 165.1 cm (5' 5) Notes Progress Notes - Office Visi t - 04/23/2025 - GA:10w5d 04/23/2025 - 10w5d - Gladys Hou NP atient ID: Le Spears is a 24 y.o. female Subjective Chief Complaint: Routine Visit HPI Le is a 24 y.o. yo at 10w5d by ultrasound (Patient's last menstrual period was 01/13/2025.)here for NOB visit. This is a planned and desired with Clarita. Since LMP she reports some spotting around April 04. Went to ED saw [facility], was placed on progesterone and then noted this light spotting. Denies any complications thus far during the . Review of Systems HENT: Negative. Eyes: Negative. Respiratory: Negative for chest tightness and shortness of breath. Cardiovascular: Negative for leg swelling. Gastrointestinal: Positive for nausea and vomiting. Endocrine: Negative. Genitourinary: Negative for vaginal bleeding and vaginal discharge. Musculoskeletal: Positive for back pain. Skin: Negative. Neurological: Negative. Hematological: Does not bruise/bleed easily. Psychiatric/Behavioral: Negative. Dating: Working Critiera: Ultrasound Patient's last menstrual period was 01/13/2025. -> ADIEL: 08/17/2025 US Date: 04/23/2025, Gest Age 10w5d -> ADIEL: 11/14/2025 History: OB History Para Term AB Living 1 0 0 0 0 0 SAB IAB Ectopic Multiple Live Births 0 0 0 0 0 # Outcome Date GA Lbr Kike/2nd Weight Sex Type Anes PTL Lv 1 Current Genetic History: [-] Mother's Age > 34 years [-] Sickle Cell Disease or Trait () [-] Thalasemia (Prydeinig, Thai, Medit or ; MCV <80) [-] Nasim Sachs Disease (Samaritan, Cajun, Liberian Smith) [-] Down Syndrome [-] Neural Tube Defects (Meningomyelocele, Spina Bifida or Anencephaly) [-] Other Developmental Delay [-] Cystic Fibrosis [-] Barbara's Chorea [-] Muscular Dystrophy [-] Hemophilia [-] Other Heritable condition [employer] Her LMP was Patient's last menstrual period was 01/13/2025.. She has PCOS and irregular cycles. Her last pap smear was 12/17/2024 NILM HPV-. She denies h/o STDS or HSV. Medical She has a past medical history of Allergy status to unspecified drugs, medicaments and biological substances status, Anxiety disorder, Chronic sinusitis, Disorder of thyroid, OTHER MEDICAL, OTHER MEDICAL, OTHER MEDICAL, Hypothyroidism, and Polycystic ovary syndrome. Surgical She has a past surgical history that includes Knee surgery; Gallbladder surgery; and Cholecystectomy. Social Patient Social History Tobacco Use Smoking Status Never Smokeless Tobacco Never Tobacco Comments Na Substance and Sexual Activity Drug Use No Alcohol Use: Not on file She denies any illicit or IV drug use and does not currently drink alcohol She lives at home with Clarita. 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 She does have cats in the home. She had chicken pox/vaccine as a child Meds Current Outpatient Medications: levothyroxine (Synthroid) 150 mcg tablet, Take 1 tablet by mouth every day Tuesday through Tuesday and 1/2 of a tablet on Tuesday and Tuesday, Disp: 90 tablet, Rfl: 1 liothyronine (CYTOMEL) 5 mcg tablet, Take 2 tablets by mouth daily, Disp: 180 tablet, Rfl: 1 metFORMIN (GLUCOPHAGE) 1,000 mg tablet, Take 1 tablet (1,000 mg total) by mouth 2 (two) times a day with meals, Disp: 180 tablet, Rfl: 4 progesterone (PROMETRIUM) 200 mg capsule, Take 1 capsule (200 mg total) by mouth nightly, Disp: 30 capsule, Rfl: 3 Nurtec ODT tablet,disintegrating, Place under the tongue (Patient not taking: Reported on 04/23/2025), Disp: , Rfl: Allergies Patient is allergic to keflex [cephalexin] and erythromycin. Objective BP 112/74 (BP Location: Left arm, Patient Position: Sitting) Ht 165.1 cm (5' 5) Wt 202 lb (91.6 kg) LMP 01/13/2025 BMI 33.61 kg/m Gen-NAD Breasts-deferred Resp-normal effort Pelvic-deferred Ext-no edema or tenderness TVUS- Single iup seen adiel 3-19 Yolk sac is noted Fhr 153 Rt ovary wnl Lt ovary not seen Uterus is retroflexed Cervical length 4.18 Assessment/Plan Le was seen today for routine visit. Diagnoses and all orders for this visit: 10 weeks gestation of - POCT OB urine short dip (glucose, protein, ketones) Congenital hypothyroidism Class 1 obesity due to excess calories without serious comorbidity with body mass index (BMI) of 34.0 to 34.9 in adult - PNV daily - OB labs ordered. Discussed options for testing for cystic fibrosis, SMA and Fragile X. Will check with insurance for pricing. - Genetic screening offered including NIPT. Patient desires with gender, would like to know via [employer] message - Reviewed course of care and normal - Dietary and activity restrictions reviewed - SAB precautions reviewed in detail - Practice set up and handouts given - Follow up in 1 month complicated by: 1)BMI 34.28: early glucola 2) Congenital Hypothyroidism: being managed by her Local Operator, blood work today 3) Anxiety: was on Paxil stopped when found out was ; starting Lexapro 10 mg today Gladys Hou NP Women's Health Nurse Practitioner Cosigned by Brandy Nowak MD at 04/29/2025 11:58 PM CDT Last Filed Vital Signs Vital Sign Reading Time Taken Comments Blood Pressure 112/74 04/23/2025 11:22 AM CDT Pulse 97 11/07/2024 8:33 AM CDT Temperature 37 C (98.6 F) 08/16/2022 9:37 AM SECTION LEADER AND MACHINE SETTER Respiratory Rate 16 11/07/2024 8:33 AM CDT Oxygen Saturation 98% 11/07/2024 8:33 AM CDT Inhaled Oxygen Concentration - - Weight 91.6 kg (202 lb) 04/23/2025 11:22 AM CDT Height 165.1 cm (5' 5) 04/23/2025 11:22 AM CDT Body Mass Index 33.61 04/23/2025 11:22 AM CDT Plan of Treatment Health Maintenance Due Date Last Done Comments Varicella Vaccines (1 of 2 - 13+ 2-dose series) 2011 HPV Vaccines (1 - 3-dose series) 2013 DTaP/Tdap/Td Vaccine (6 - Td or Tdap) 09/09/2019 09/09/2009, 03/04/2004, 12/02/1999, Additional history exists Depression Screening 08/16/2023 08/16/2022 Covid-19 Vaccine ( - season) 2025 05/02/2021 Influenza Vaccine (#1) 2025 05/25/2024 Cervical Cancer Screening 12/17/20252024, 12/17/2024, 09/08/2023, Additional history exists Regular Well Visit/Exam 18-64 12/17/2025 12/17/2024, 09/08/2023 Hepatitis B Screening Completed 05/16/1999 , 1998, 1998 Hepatitis C Screening Completed 04/23/2025 Pneumococcal vaccine <65 Aged Out No longer eligible based on patient's age to complete this topic Procedures Procedure Name Priority Date/Time Associated Diagnosis Comments PANORAMA TEST Routine 04/23/2025 2:01 PM CDT Encounter for screening for chromosomal anomalies N. GONORRHOEAE/C. TRACHOMATIS AMPLIFICATION Routine 04/23/2025 1:42 PM CDT 10 weeks gestation of Encounter for supervision of normal first in first trimester Screening examination for STD (sexually transmitted disease) TRICHOMONAS VAGINALIS PCR Routine 04/23/2025 1:42 PM CDT 10 weeks gestation of Encounter for supervision of normal first in first trimester Screening examination for STD (sexually transmitted disease) DIFFERENTIAL AUTO Routine 04/23/2025 1:3 1 PM CDT 10 weeks gestation of Encounter for supervision of normal first in first trimester T3, FREE Routine 04/23/2025 1:31 PM CDT Congenital hypothyroidism T4, FREE Routine 04/23/2025 1:31 PM CDT Congenital hypothyroidism TSH Routine 04/23/2025 1:31 PM CDT Congenital hypothyroidism TYPE AND SCREEN Routine 04/23/2025 1:31 PM CDT 10 weeks gestation of Encounter for supervision of normal first in first trimester CBC WITH AUTO DIFFERENTIAL Routine 04/23/2025 1:31 PM CDT 10 weeks gestation of Encounter for supervision of normal first in first trimester GTT 50GM 1HR GESTATIONAL SCREEN Routine 04/23/2025 1:31 PM CDT 10 weeks gestation of Encounter for supervision of normal first in first trimester HEPATITIS B SURFACE ANTIGEN Routine 04/23/2025 1:31 PM CDT 10 weeks gestation of Encounter for supervision of normal first in first trimester Screening examination for STD (sexually transmitted disease) HIV 1/2 ANTIBODY PLUS P24 ANTIGEN Routine 04/23/2025 1:31 PM CDT 10 weeks gestation of Encounter for supervision of normal first in first trimester Screening examination for STD (sexually transmitted disease) RPR Routine 04/23/2025 1:31 PM CDT 10 weeks gestation of Encounter for supervision of normal first in first trimester Screening examination for STD (sexually transmitted disease) VARICELLA ZOSTER ANTIBODY, IGG Routine 04/23/2025 1:31 PM CDT 10 weeks gestation of Encounter for supervision of normal first in first trimester Screening examination for STD (sexually transmitted disease) RUBELLA IGG Routine 04/23/2025 1:31 PM CDT 10 weeks gestation of Encounter for supervision of normal first in first trimester HEPATITIS C ANTIBODY Routine 04/23/2025 1:31 PM CDT 10 weeks gestation of Encounter for supervision of normal first in first trimester Screening examination for STD (sexually transmitted disease) URINE CULTURE Routine 04/23/2025 12:13 PM CDT 10 weeks gestation of Encounter for supervision of normal first in first trimester POCT OB URINE SHORT DIP (GLUCOSE, PROTEIN, KETONES) Routine 04/23/2025 11:43 AM CDT 10 weeks gestation of OB UNDER 14 WEEKS Schedule Routine, Read Routine (OP Routine) 04/23/2025 11:10 AM CDT with inconclusive viability, single or unspecified fetus T4, FREE Routine 03/14/2025 2:56 PM CDT Congenital hypothyroidism T3, FREE Routine 03/14/2025 2:56 PM CDT Congenital hypothyroidism TSH Routine 03/14/2025 2:56 PM CDT Congenital hypothyroidism HCG, BLOOD, QUANTITATIVE Routine 03/11/2025 3:19 PM CDT First trimester PROGESTERONE Routine 03/11/2025 3:19 PM CDT First trimester HIGH RISK HPV DNA DETECTION WITH GENOTYPING Routine 12/17/2024 4:30 PM CDT Well woman exam with routine gynecological exam Screening for HPV (human papillomavirus) from Last 3 Months or Most Recently Relevant to Health Maintenance Results * PANORAMA TEST (04/23/2025 2:01 PM CDT) REPORT SUMMARY LOW RISK 04/28/2025 9:56 AM CDT [facility] Comment:LOW RISK REPORT NOTE See Notes 04/28/2025 9:56 AM CDT [facility] GENDER OF FETUS Male 9:56 AM CDT [facility] FRACTION 3.9% 04/28/2025 9:56 AM CDT [facility] TRISOMY 21 RESULT TEXT Low Risk 04/28/2025 9:56 AM CDT [facility] TRISOMY 21 AGE-BASED RISK TEXT 1872 (0.11%) 04/28/2025 9:56 AM CDT [facility] TRISOMY 21 RISK SCORE TEXT <1/10,000 (<0.01%) 04/28/2025 9:56 AM CDT [facility] TRISOMY 18 RESULT TEXT Low Risk 04/28/2025 9:56 AM CDT [facility] TRISOMY 18 AGE-BASED RISK TEXT 08/29,765 (0.06%) 04/28/2025 9:56 AM CDT [facility] TRISOMY 18 RISK SCORE TEXT <1/10,000 (<0.01%) 04/28/2025 9:56 AM CDT [facility] TRISOMY 13 RESULT TEXT Low Risk 04/28/2025 9:56 AM CDT [facility] TRISOMY 13 AGE-BASED RISK TEXT 5,621 (0.02%) 04/28/2025 9:56 AM CDT [facility] TRISOMY 13 RISK SCORE TEXT <1/10,000 (<0.01%) 04/28/2025 9:56 AM CDT [facility] MONOSOMY X RESULT TEXT Low Risk 04/28/2025 9:56 AM CDT [facility] MONOSOMY X AGE-BASED RISK TEXT 1255 (0.39%) 04/28/2025 9:56 AM CDT [facility] MONOSOMY X RISK SCORE TEXT <1/10,000 (<0.01%) 04/28/2025 9:56 AM CDT [facility] TRIPLOIDY RESULT TEXT Low Risk 9:56 AM CDT [facility] 22Q11.2 DELETION SYNDROME RESULT TEXT Low Risk 04/28/2025 9:56 AM CDT [facility] 22Q11.2 DELETION SYNDROME POPULATION-BASED RISK TEXT 12,000 04/28/2025 9:56 AM CDT [facility] 22Q11.2 DELETION SYNDROME RISK SCORE TEXT 3,100 04/28/2025 9:56 AM CDT [facility] FOOTNOTES See Notes 04/28/2025 9:56 AM CDT [facility] Comment: Testing Methodology DNA isolated from maternal blood, which contains placental DNA, is amplified at specific loci using a targeted PCR assay and is sequenced using a high- throughput sequencer. fraction is determined using a proprietary algorithm incorporating data from single nucleotide polymorphism-based (SNP-based) next-generation sequencing [Kacey Lowry et al. Obstet Gynecol. 2014 Mar;124(2 Pt 1):210-8]. If there is sufficient fraction, sequencing data is analyzed using a proprietary SNP- based algorithm to determine the copy number for chromosomes 13, 18, 21, X and Y. If ordered, specific microdeletions will be evaluated using similar methodology [Wendi DUNBAR et al. Am J Obstet Gynecol. 2015 Oct;212(3):332.e1-9]. If the fraction is insufficient, an additional algorithm to determine whether there is an increased risk for triploidy, trisomy 18, and trisomy 13 may be utilized, known as fraction based risk assessment (FFBR) [Anshu et al. Ultrasound Obstet Gynecol 2019; 53:73-79]. If ordered on a vanishing twin , a proprietary analysis will be performed to differentiate between the viable/living fetus and the vanished fetus to allow for risk assessment of copy number of chromosomes 13,18, 21, X, Y, and specific microdeletions in the viable/living twin using the above described SNP- based algorithm. If ordered, and patient is RHD negative by genotype, RHD status will be evaluated using a proprietary algorithm if fraction is sufficient [Alexi Spears et al. Obstet Gynecol 2023;145:1?7]. However, some samples will not produce a result due to failure to meet the necessary quality thresholds. This test has been validated on women with a merino, twin, vanishing twin, or egg donor of at least nine weeks gestation. A result will not be available for higher order multiples and multiple gestation pregnancies with an egg donor or surrogate, or bone marrow transplant recipients. Complete test panel is not available for twin gestations and pregnancies achieved with an egg donor or surrogate. For twin pregnancies with a fraction value below the threshold for analysis, a sum of the fractions for both twins will be reported. As this assay is a screening test and not diagnostic, false positives and false negatives can occur. High risk test results need diagnostic confirmation by alternative testing methods. Low risk results do not fully exclude the diagnosis of any of the syndromes nor do they exclude the possibility of other chromosomal abnormalities or defects, which are not a part of this test. Potential sources of inaccurate results include, but are not limited to, mosaicism, low fraction, limitations of current diagnostic techniques, or misidentification of samples. This test will not identify all deletions associated with each microdeletion syndrome. This test has been validated for deletions ?0.5 Mb within the 22q11.2 A-D region. This test has been validated on full region deletions only for 1p36 deletion syndrome, Cri-du-chat syndrome, Prader Willi syndrome and Angelman syndrome and may be unable to detect smaller deletions. Microdeletion risk score may be dependent upon fraction, as deletions on the maternally inherited copy are difficult to identify at lower fractions. Test results should always be interpreted by a clinician in the context of clinical and familial data with the availability of genetic counseling when appropriate. Disclaimers The extraction, library preparation, and sequencing of this test were performed by [employer] [id number] [place] [address] [address] [address] (CLIA ID [id number]). The data analysis and reporting of this test were performed by [employer] [address]. [address], [place] [address] (CLIA ID [id number]). The performance characteristics of this test were developed by [employer].(CLIA ID [id number]). This test has not been cleared or approved by the U.S. Food and Drug Administration (FDA). These laboratories are regulated under CLIA as qualified to perform high-complexity testing. 2024 [employer]. All Rights Reserved. Please refer to the attached PDF report Reviewed By: Cole Yan M.D., Ph.D., [facility], Senior Supervisor [employer] [facility] Sorting Machine Operator: Damian Patel, Ph.D., [facility] IF THE ORDERING PROVIDER HAS QUESTIONS OR WISHES TO DISCUSS THE RESULTS, PLEASE CONTACT US AT [phone], option 2. Ask for the NIPT genetic counselor stallion keeper. Blood specimen (specimen) Venous blood specimen / Unknown 04/23/2025 2:01 PM CDT 04/24/2025 2:00 AM CDT Gladys Hou NP LAB GENETIC TESTING Final Re sult [facility] [address] [place] [address], [facility] * N. gonorrhoeae/C. trachomatis Amplification Urine (04/23/2025 1:42 PM CDT) C. trachomatis Not Detected Not Detected N. gonorrhoeae Not Detected Not Detected [facility] Comment: Interpretive Data This assay detects Chlamydia trachomatis and Neisseria gonorrhoeae by nucleic acid amplification testing (NAAT). This assay has been cleared by the [place] Food and Drug administration. The performance characteristics of this test have been verified by the [facility]. The performance characteristics of this test have not been evaluated in individuals less than 14 years of age. Current Interpretive Data last revised 2023. Urine (None) 04/23/2025 1:42 PM CDT 04/23/2025 1:42 PM CDT Gladys Hou NP LAB MICROBIOLOGY - GENERAL O RDERABLES Final Result [facility] [address] Department [place] [address] * Trichomonas vaginalis PCR Urine (04/23/2025 1:42 PM CDT) Trichomonas DNA Not Detected [facility] Comment: Interpretive Data This assay detects Trichomonas vaginalis by nucleic acid amplification testing (NAAT). This assay has been cleared by the [place] Food and Drug administration. The performance characteristics of this test have been verified by the [facility] Molecular Infectious Disease laboratory. The performance of this test has not been evaluated in individuals less than 18 years of age. Current Interpretive Data was last revised on 2023. Testing performed by: [facility], [address] [facility], [place]., [address] Urine 04/23/2025 1:42 PM CDT 04/23/2025 4:55 PM CDT us Gladys Hou NP LAB MICROBIOLOGY - GENERAL O RDERABLES Final Result [facility] [address] Department [place] [address] [facility] * (ABNORMAL) Differential, auto (04/23/2025 1:31 PM CDT) Neutrophil abs 7.95(H) 1.50 - 6.50 K/cumm Imm gran abs 0.04 0.00 - 0.10 K/cumm [facility] Lymphocyte abs 1.43 0.80 - 3.30 K/cumm [facility] Monocyte abs 0.48 0.20 - 0.80 K/cumm [facility] Eosinophil abs 0.11 0.00 - 0.50 K/cumm [facility] Basophil abs 0.04 0.00 - 0.10 K/cumm [facility] Neutrophil pct 79.1 % [facility] Comment: Interpretive Data Percent cell count reference ranges are not reported, since discordance with absolute values may lead to misinterpretation of CBC data. Current Interpretive Data was last revised on 2017. Imm gran pct 0.4 % [facility] Comment: Interpretive Data Percent cell count reference ranges are not reported, since discordance with absolute values may lead to misinterpretation of CBC data. Current Interpretive Data was last revised on 2017. Lymphocyte pct 14.2 % [facility] Comment: Interpretive Data Percent cell count reference ranges are not reported, since discordance with absolute values may lead to misinterpretation of CBC data. Current Interpretive Data was last revised on 2017. Monocyte pct 4.8 % [facility] Comment: Interpretive Data Percent cell count reference ranges are not reported, since discordance with absolute values may lead to misinterpretation of CBC data. Current Interpretive Data was last revised on 2017. Eosinophil pct 1.1 % [facility] Comment: Interpretive Data Percent cell count reference ranges are not reported, since discordance with absolute values may lead to misinterpretation of CBC data. Current Interpretive Data was last revised on 2017. Basophil pct 0.4 % [facility] Comment: Interpretive Data Percent cell count reference ranges are not reported, since discordance with absolute values may lead to misinterpretation of CBC data. Current Interpretive Data was last revised on 2017. Blood 04/23/2025 1:31 PM CDT 04/23/2025 7:42 PM CDT Gladys Hou CUSTOMER QUALITY SPECIALIST LAB BLOOD ORDERABLES Final R esult Performing Organization Address City/[facility] Co de Phone Number [facility] [address] [place] [address] * GTT 50gm 1hr gestational screen (04/23/2025 1:31 PM CDT) GTT 50g gest screen 126 <=140 mg/dL Comment: Interpretive Data Used for suspected gestational diabetes. The screening test uses 50 grams of glucose with sample obtained 1 hr later. Normal range: < 140 mg/dL. A glucose value of >140 mg/dL generally indicates the need for a full diagnostic tolerance test. Reference Interval Info: Diabetes Care 2005, Vol 28. Supplement 1,S37-S42. Report of the Expert Committee on the Diagnosis and Classification of Diabetes Mellitus. Diabetes Care 2020; 43(Supplement 1):S14-31. Current interpretive data was last revised on 2020. Blood 04/23/2025 1:31 PM CDT 04/23/2025 4:27 PM CDT Gladys Hou CUSTOMER QUALITY SPECIALIST LAB BLOOD ORDERABLES Final R esult Performing Organization Address City/[facility]/ZIP Co de Phone Number [facility] [address] Department [employer] [place], [place] [id number] * HIV 1/2 Antibody plus p24 Antigen Blood (04/23/2025 1:31 PM CDT) HIV 1/2 ab + p24 ag Nonreactive Nonreactive Comment: Nonreactive for HIV-1 antigen and HIV-1/HIV-2 antibodies. No laboratory evidence of HIV infection. If acute HIV infection is suspected, consider testing for HIV-1 RNA. Blood 04/23/2025 1:31 PM CDT 04/23/2025 6:21 PM CDT Gladys Hou NP LAB MICROBIOLOGY - GENERAL O RDERABLES Final Result Performing Organization Address City/[facility]/ZIP Co de Phone Number [facility] [address] [place] [address] * (ABNORMAL) CBC with auto differential (04/23/2025 1:31 PM CDT) [facility] WBC 10.05(H) 3.80 - 9.90 K/cumm Hgb 13.3 11.9 - 15.5 g/dL [facility] Hct 38.6 35.6 - 45.5 % [facility] Plt 343 150 - 400 K/cumm [facility] MPV 9.8 9.1 - 12.3 fL [facility] RBC 4.45 3.90 - 5.20 M/cumm [facility] MCV 86.7 81.3 - 96.4 fL [facility] MCH 29.9 27.1 - 33.3 pg [facility] MCHC 34.5 32.3 - 35.7 g/dL [facility] RDW CV 12.3 11.1 - 14.9 % [facility] RDW SD 38.8 35.7 - 48.1 fL [facility] NRBC abs 0.00 0.00 - 0.01 K/cumm [facility] Blood 04/23/2025 1:31 PM CDT 04/23/2025 7:42 PM CDT Gladys Hou NP LAB BLOOD ORDERABLES Final R esult Performing Organization Address City/[facility]/ZIP Co de Phone Number [facility] [address] Department of [employer] [place], [place] [id number] * Hepatitis C antibody Blood (04/23/2025 1:31 PM CDT) [facility] Hep C Ab Nonreactive Nonreactive Comment: Interpretive Data Nonreactive: Antibodies to HCV not detected. Does NOT exclude the possibility of recent exposure to HCV. Equivocal: Equivocal for HCV antibodies. Supplemental molecular testing will be automatically performed to determine infection status in accordance with current CDC screening recommendations. Reactive: Positive for HCV antibodies. This may represent current or past HCV infection. Supplemental molecular testing will be automatically performed to determine current infection status in accordance with current CDC screening recommendations. Interpretive data was last revised on 2019. Blood 04/23/2025 1:31 PM CDT 04/23/2025 5:47 PM CDT Gladys Hou NP LAB MICROBIOLOGY - GENERAL O RDERABLES Final Result [facility] [address] Department [place] [address] * Rubella IgG antibody Blood (04/23/2025 1:31 PM CDT) Pathologist [facility] Rubella IgG Reactive Reactive Comment:Reactive: Results ann ggest response to immunization or prior exposure to the virus. Blood 04/23/2025 1:31 PM CDT 04/23/2025 5:47 PM CDT Gladys Hou NP LAB MICROBIOLOGY - GENERAL O RDERABLES Final Result [facility] [address] [place] [address] * RPR Blood (04/23/2025 1:31 PM CDT) Pathologist [facility] RPR Nonreactive Nonreactive Comment:Testing performed by : [facility], [address] [facility], [place]., [address] Blood 04/23/2025 1:31 PM CDT 04/23/2025 7:03 PM CDT Gladys Hou NP LAB MICROBIOLOGY - GENERAL O RDERABLES Final Result Performing Organization Address [facility] Co de Phone Number [facility] [address] Department [place] [address] * Hepatitis B Surface Antigen Blood (04/23/2025 1:31 PM CDT) [facility] HepBsAg Nonreactive Nonreactive Blood 04/23/2025 1:31 PM CDT 04/23/2025 5:47 PM CDT Gladys Hou NP LAB MICROBIOLOGY - GENERAL O RDERABLES Final Result Performing Organization Address [facility] Co de Phone Number [facility] [address] [place] [address] * Type and screen (04/23/2025 1:31 PM CDT) [facility] Marino, indirect Negative ABO Rh A Negative [facility] Blood 04/23/2025 1:31 PM CDT 04/23/2025 4:21 PM CDT Narrative [facility] - 04/23/2025 5:07 PM CDT Has the patient had Daratumumab or Isatuximab in the past 6 months?->Unknown Gladys Hou NP LAB BLOOD BANK TEST ORDERABL ES Final Result Performing Organization Address [facility] Co de Phone Number [facility] [address] Department of Laboratories [place], [place] [phone] * (ABNORMAL) Varicella Zoster IgG antibody Blood (04/23/2025 1:31 PM CDT) [facility] VZV IgG Equivocal( A) Reactive Comment: Equivocal: Presence or absence of detectable antibodies to Varicella-zoster virus cannot be determined. Submit new specimen if clinically indicated. Testing performed by: [facility], [address] [facility], [place]., [address] Blood 04/23/2025 1:31 PM CDT 04/23/2025 7:07 PM CDT Gladys Hou CUSTOMER QUALITY SPECIALIST LAB MICROBIOLOGY - GENERAL O RDERABLES Final Result Performing Organization Address [facility] Co de Phone Number [facility] [address] [facility] [place], [place] [id number] * T3, free (04/23/2025 1:31 PM CDT) Free T3 3.0 2.0 - 4.4 pg/mL Blood 04/23/2025 1:31 PM CDT 04/23/2025 4:26 PM CDT Radha Alejandre MD LAB BLOOD ORDERABLES Final R esult Performing Organization Address [facility] Co de Phone Number [facility] [address] [place] [address] * TSH (04/23/2025 1:31 PM CDT) Thyroid Stimulating Hormone 0.62 0.30 - 4.20 mcIUnit/mL Blood 04/23/2025 1:31 PM CDT 04/23/2025 4:26 PM CDT Radha Alejandre MD LAB BLOOD ORDERABLES Final R esult Performing Organization Address [facility] Co de Phone Number [facility] [address] [facility] [place] [address] * T4, free (04/23/2025 1:31 PM CDT) Free T4 1.04 0.90 - 1.70 ng/dL Blood 04/23/2025 1:31 PM CDT 04/23/2025 4:26 PM CDT Rahda Alejandre MD LAB BLOOD ORDERABLES Final R esult Performing Organization Address [facility]/ZIP Co de Phone Number [facility] [address] [facility] [place] [address] * (ABNORMAL) Urine culture Urine, clean voided (04/23/2025 12:13 PM CDT) Report Final Report: Less than 10,000 colonies/ml of Gram Positive Organism No further workup. (.) Organism GRAM POSITIVE ORGANISM [facility] Urine, clean voided 04/23/2025 12:13 PM CDT 04/23/2025 1:43 PM CDT Gladys Hou NP LAB MICROBIOLOGY - GENERAL O RDERABLES Final Result Performing Organization Address [facility] Co de Phone Number [facility] [address] [place] [address] * POCT OB urine short dip (glucose, protein, ketones) (04/23/2025 11:43 AM CDT) Glucose, ur, POC Negative Negative Protein, ur, POC Negative Negative Ketones, ur, POC Negative Negative Lot Number [id number] Comment:[email or web address]. trace Urine 04/23/2025 11:4 3 AM CDT Gladys Hou NP POINT OF CARE TEST ORDERABLE S Final Result * US Ob Under 14 Weeks (04/23/2025 11:10 AM CDT) Anatomical Region Laterality Modality Abdomen N/A Ultrasound Narrative 04/23/2025 10:55 AM CDT Single iup seen adiel 3-19 Yolk sac is noted Fhr 153 Rt ovary wnl Lt ovary not seen Uterus is retroflexed Cervical length 4.18 Brandy Nowak MD IMG OB US PROCEDURES Edite d Result - Final * T3, free (03/14/2025 2:56 PM CDT) Pathologist [facility] Triiodothyronin e,Free,Serum 3.7 2.0 - 4.4 pg/mL [facility] - 01 Blood 03/14/2025 2:56 PM CDT 03/14/2025 Narrative [facility] - 03/15/2025 12:10 PM CDT Performed at: [address] [place] [id number] Sorting Machine Operator: Rai Flores PhD, Phone: [phone] Radha Alejandre MD LAB BLOOD ORDERABLES Final R esult Performing Organization Address City/[facility]/ZIP Co de Phone Number [facility] - * TSH (03/14/2025 2:56 PM CDT) [facility] TSH 1.380 0.450 - 4.500 uIU/mL [facility] - 01 Blood 03/14/2025 2:56 PM CDT 03/14/2025 Narrative [facility] - 03/15/2025 11:11 AM CDT Performed at: [address] [place] [id number] Sorting Machine Operator: Rai Flores PhD, Phone: [phone] Radha Alejandre MD LAB BLOOD ORDERABLES Final R esult [facility] - * T4, free (03/14/2025 2:56 PM CDT) Pathologist [facility] T4,Free(Direct) 1.11 0.82 - 1.77 ng/dL [facility] - 01 Blood 03/14/2025 2:56 PM CDT 03/14/2025 Narrative [facility] - 03/15/2025 11:11 AM CDT Performed at: [address] [id number] Sorting Machine Operator: Rai Flores PhD, Phone: [phone] Radha Alejandre MD LAB BLOOD ORDERABLES Final R esult Performing Organization Address [facility] de Phone Number [facility] * Progesterone (03/11/2025 3:19 PM CDT) [facility] Progesterone 19.1 ng/mL [facility] - Comment: Follicular phase 0.1 - 0.9 Luteal phase 1.8 - 23.9 Ovulation phase 0.1 - 12.0 First trimester 11.0 - 44.3 Second trimester 25.4 - 83.3 Third trimester 58.7 - 214.0 Postmenopausal 0.0 - 0.1 Blood 03/11/2025 3:19 PM CDT 03/11/2025 Narrative [facility] - 03/12/2025 8:11 AM CDT Performed at: [address] [id number] Sorting Machine Operator: Rai Flores PhD, Phone: [phone] Brandy Nowak MD LAB BLOOD ORDERABLES Final Result Performing Organization Address [facility] de Phone Number [facility] * hCG, blood, quantitative (03/11/2025 3:19 PM CDT) [facility] HCG, quant 396 mIU/mL [facility] - Comment: Female (Non-) 0 - 5 (Postmenopausal) 0 - 8 Female () Weeks of Gestation 3 6 - 71 4 10 - 750 5 782 - 6311 6 985 - 16034 7 [phone] 8 89306 -[phone] 9 [phone] 10 09624 -401221 12 79201 -[phone] 14 50705 - 44530 15 13412 - 03787 16 9400 - 23701 17 5604 - 84699 18 5915 - [phone] Fay ECLIA methodology Blood 03/11/2025 3:19 PM CDT 03/11/2025 Narrative [facility] - 03/12/2025 8:11 AM CDT Performed at: 01 - [address] [id number] Sorting Machine Operator: Rai Flores PhD, Phone: [phone] Brandy Nowak MD LAB BLOOD ORDERABLES Final Result [facility] - 01 * High Risk HPV DNA Detection with Genotyping (Molecular component) (12/17/2024 4:30 PM CDT) HPV HR 16 Not Detected Not Detected HPV HR 18 Not Detected Not Detected [facility] HPV HR Non 16/18 Not Detected Not Detected [facility] Comment: Interpretive Data Nucleic acid amplification for [...] this test have been verified by the [facility]. Correlate with separately reported cytology results, as applicable. Interpretive data last revised 23 Endocervical 12/17/2024 4:30 PM CDT 12/17/2024 9:02 PM CDT Narrative [facility] - 12/19/2024 7:26 PM CDT Clinical history and diagnosis->well woman exam Number of vials->1 Testing type->Screening Last menstrual period (date if known)->11/10/24 Previous positive HPV history?->No Previous negative PAP?->Yes Brandy Nowak MD LAB BODY FLUIDS AND STOOLS ORDERABLES Final Result [facility] [address] Department [place] [address] from Last 3 Months or Most Recently Relevant to Health Maintenance Additional Health Concerns Infection Onset Date Last Indicated COVID19 Comment:apr 12 2020 08/18/2020 08/17/2020 Insurance [facility] CHO[facility] [employer] [facility] Advance Directives For more information, please contact: [phone] Documents on File Type Date Recorded Patient Bartender Helper Expl anation ADVANCE DIRECTIVE 09/14/2018 3:33 PM Care Teams Lab Director Relationship Specialty Start Date End Date Darryl Carrera MD PCP - General 07/05/17
--- OUTSIDE RECORDS SUMMARY | 2025-05-15 12:39 | XMS_ITS | Encounter Summary ---
Author Organization [facility] Address [address] [place] [address] Phone Care Team Providers Care Director Of Health Care Marketing Name Role Phone Darryl Carrera MD Primary Care Provider Encounter Details Date Type Department Care Team (Late st Contact Info) Description 04/27/2018 Telephone [facility] Pediatric Cardiology [facility] 2[address] [place] [address] [place] [address] Candice Orozco Social History Tobacco Use Types Packs/Day Years Used Date Smoking Tobacco: Never Assessed Comments Unknown Sex and Gender Information Value Date Recorded Sex Assigned at Not on file Legal Sex Female 3:45 AM RACK PUSHER Gender Identity Female 09/02/2023 2:05 PM RACK PUSHER Sexual Orientation Not on file documented as of this encounter Plan of Treatment Not on file documented as of this encounter Visit Diagnoses Not on filedocumented in this encounter Additional Health Concerns Infection Onset Date Last Indicated Resolved Time COVID19 Comment:apr 12 2020 08/18/2020 08/17/2020 documented as of this encounter Care Teams Director Of Health Care Marketing Relationship Specialty Start Date End Date Darryl Carrera MD PCP - General 07/05/17 documented as of this encounter
[2025-05-15 13:01] LABS: Hematocrit 39.4 % (37.0-47.0); Hemoglobin 13.3 g/dL (12.0-15.0); Immature Granulocyte Percent A 0.5 % (0-0.5); Lymphocytes Absolute Auto 2.30 K/mm3 (0.9-3.2); Mean Corpuscular HGB Conc 33.8 g/dl (32-36); Mean Corpuscular Hemoglobin 29.2 pg (26-34); Mean Corpuscular Volume 86.6 fl (80-100); Nucleated Red Blood Cells Absolute Auto 0.000 K/mm3 (0.0-0.012); Nucleated Red Blood Cells Perc 0.0 % (0.0-0.2); Platelet Count Result 314 k/mm3 (150-375); Red Blood Count 4.55 M/mm3 (4.2-5.4); White Blood Count 12.8 K/mm3 (4.5-10.0)
--- NOTE | 2025-05-15 13:04 | ED.FEMALEGU ---
HPI - Female Genitourinary General Chief complaint: Vaginal Bleeding Stated complaint: vaginal bleeding; Time Seen by Provider: 05/15/25 12:44 Source: patient Mode of arrival: ambulatory Limitations: no limitations History of Present Illness HPI Narrative: Le is a 24-year-old female patient presenting to the clinic today with complaints of abdominal cramping and vaginal bleeding started around 10:00 p.m. last night. Bleeding started this morning. Patient is 14 weeks . Has not taken any medications for her symptoms. Related Data Home Medications ?Medication ?Instructions ?Recorded ?Confirmed ?Last Taken ?Type liraglutide 0.6 mg/0.1 mL (18 mg/3 mg subcut 04/12/20 05/17/22 Unknown History mL) subcutaneous pen injector (Victoza 3-Davis) metformin 500 mg tablet 500 mg PO TID 12/30/20 05/17/22 Unknown History Allergies Allergy/AdvReac Type Severity Reaction Status Date / Time cephalexin (From Keflex) Allergy Mild Unknown Verified 08/14/24 11:44 Cephalosporins AdvReac Unknown GI UPSET Verified 08/14/24 11:44 erythromycin base AdvReac Unknown GI UPSET Verified 08/14/24 11:44 Review of Systems Review of Systems: Pertinent positives per HPI. Patient denies any fever, chills, rash, headache, visual changes, dizziness, cough, shortness of breath, chest pain, palpitations, nausea, vomiting, diarrhea, constipation,or any urinary issues. [facility] Past Medical History Medical History Left knee injury Hx of migraines PCOS (polycystic ovarian syndrome) Hypothyroidism Surgical History Surgical History History of tonsillectomy History of cholecystectomy Family History Family History Other CAD (coronary artery disease) Heart disease Social History Social History Smoking status: Never smoker Alcohol intake: current Alcohol use details: Social Substance use: never Gender identity (if verbalized by the patient): Female Comments At the time of my signature, I reviewed and agree with the nursing past medical, surgical, social, and family history. There is no relevant family history pertinent to the patient complaint. Exam Narrative: General: Well-developed, well nourished, in no apparent distress. Head: Normocephalic, atraumatic. Cardio: Regular rate and rhythm, s1 and s2 normal, no murmur appreciated. Resp: Clear to auscultation bilaterally, no rhonchi, rales, wheezing or rubs. Abdomen: Soft, pliable, bowel sounds present in all quadrants, non-tender to palpation, no organomegly, no CVAT tenderness. : Deferred-patient declined exam Course Course Emergency Course: Portions of this record may have been created with voice recognition software. Vital Signs Vital signs: Vital Signs Temperature 36.7 C 05/15/25 12:37 Pulse Rate 102 H 05/15/25 12:37 Respiratory Rate 18 05/15/25 12:37 Blood Pressure 126/68 05/15/25 12:37 Pulse Oximetry 100 05/15/25 12:37 Oxygen Delivery Room Air 05/15/25 12:37 Temperature 36.7 C 05/15/25 12:37 Pulse Rate 102 H 05/15/25 12:37 Respiratory Rate 18 05/15/25 12:37 Blood Pressure 126/68 05/15/25 12:37 Pulse Oximetry 100 05/15/25 12:37 Oxygen Delivery Room Air 05/15/25 12:37 Vital signs reviewed MDM - Female Genitourinary MDM Narrative Medical decision making narrative: At the time of visit patient is resting comfortably on the exam table. Patient appears to be nontoxic. Complaints of abdominal cramping and vaginal bleeding started around 10:00 p.m. last night. Bleeding started this morning. Patient is 14 weeks . Has not taken any medications for her symptoms. Labs: CBC shows White blood cell count 12.8 H&H is 13.3 and 39.4, platelet count 314, PT and APTT are within normal limits, sodium levels 135, potassium 3.5, chloride 105, carbon dioxide 24 BUNs for our, creatinine 0.54 GFR greater than 60, glucose is 112, liver function test within normal limits, beta-hCG is 45,671. Urine shows 2+ leukocytes with 21-50 white blood cells and rare bacteria. No blood in her your Diagnostics: Ultrasound ordered and shows a single fetus with heart rate of 148 beats per minute measuring at approximate 14 weeks. Plan: I suspect patient has UTI/vaginal bleeding during . Follow-up with OBGYN later this week or early next week. Supportive measures were discussed with the patient and they voiced understanding discharge instructions and agrees to treatment plan. Return precautions reviewed Differential Diagnosis Differential diagnosis: Likely urinary tract infection and other (Threatened miscarriage, vaginal bleeding during ) Lab Data 05/15/25 12:49 05/15/25 12:49 Labs: Lab Results 05/15/25 Range/Units 12:49 WBC 12.8 H (4.5-10.0) K/mm3 RBC 4.55 (4.2-5.4) M/mm3 Hgb 13.3 (12.0-15.0) g/dL Hct 39.4 (37.0-47.0) % MCV 86.6 (80-100) fl MCH 29.2 (26-34) pg MCHC 33.8 (32-36) g/dl RDW 12.3 (11.5-14.5) % Plt Count 314 (150-375) k/mm3 MPV 9.5 (7.4-10.4) fl Immature Gran % (Auto) 0.5 (0-0.5) % Neut % (Auto) 74.2 H (45.5-73.1) % Lymph % (Auto) 18.0 L (18.3-44.2) % Collin % (Auto) 4.1 (2.6-8.5) % Eos % (Auto) 3.0 (0-4.4) % Baso % (Auto) 0.2 (0.2-1.2) % Lymph # (Auto) 2.30 (0.9-3.2) K/mm3 Collin # (Auto) 0.5 (0.1-0.6) K/mm3 Eos # (Auto) 0.4 H (0-0.3) K/mm3 Baso # (Auto) 0.0 (0.0-0.1) K/mm3 Abs Immat Gran (auto) 0.07 H (0.00-0.031) K/mm3 Absolute Neuts (auto) 9.5 H (1.3-6.7) K/mm3 Absolute Nucleated RBC 0.000 (0.0-0.012) K/mm3 Nucleated RBC % 0.0 (0.0-0.2) % PT 12.6 (11.1-14.7) Seconds INR 0.9 APTT 24.4 (22.3-36.8) Seconds Sodium 135 L (137-145) mmol/L Potassium 3.5 (3.4-5.0) mmol/L Chloride 105 (98-107) mmol/L Carbon Dioxide 24 (22-30) mmol/L Anion Gap 6 (4-12) mmol/L BUN 4 L (7-17) mg/dL Creatinine 0.54 L (0.7-1.0) mg/dL Estim Creat Clear Calc Not Reportable Estimated GFR > 60 (59 - ) Glucose 112 H (65-110) mg/dL Calcium 9.4 (8.4-10.2) mg/dL Total Bilirubin 0.3 (0.2-1.3) mg/dL AST 24 (14-36) U/L ALT 19 (6-35) U/L Alkaline Phosphatase 91 (38-126) U/L Total Protein 7.7 (6.3-8.2) g/dL Albumin 4.1 (3.5-5.1) g/dL Beta HCG, Quant 94675.00 mIU/ML Urine Color Yellow (Yellow) Urine Appearance Clear (Clear) Urine pH 7.0 (5.0-9.0) Ur Specific Berne 1.009 (1.001-1.035) Urine Protein Negative (Negative) mg/dL Urine Glucose (UA) Negative (Negative) mg/dL Urine Ketones Negative (Negative) mg/dL Ur Blood (Man) Negative (Negative) Urine Nitrate Negative (Negative) Urine Bilirubin Negative (Negative) Urine Urobilinogen 0.2 (<2.0) mg/dL Leukocyte Esterase Rfl 2+ H (Negative) COSME/UL Urine RBC 0-2 (0-2) /hpf Urine WBC 21-50 H (0-3) /hpf Ur Squamous Epith Cells Occasional (Few) /hpf Urine Bacteria Rare /hpf Urine Casts 0-2 Blood Type A Negative Antibody Screen Negative Screen TNP Baby's Blood Type TNP Baby's RANDAL TNP Doses of RhIg Required 1 Imaging Data Radiologist's impression: ITS Impressions Ultrasound 09/17/25 14:54 IMPRESSION: 1. Single living fetus with heart rate of 148 bpm. 2. Gestational age by ultrasound of 14 weeks 0 day(s) +/- 1 week and 2 days with ultrasound estimated date of delivery (ADIEL) of 11/13/2025. Discharge Plan Discharge Clinical Impression: Vaginal bleeding in , UTI (urinary tract infection) in in second trimester Patient Disposition: Home Condition: Stable Instructions: Antibiotic Form, Threatened Miscarriage (ED), Urinary Tract Infection in (ED) Additional Instructions: Ultrasound shows single living fetus-heart rates 148-showing approximately 14 weeks in gestation Your white blood cell count is slightly elevated at 12.8 Beta hCG was 45,671 Urinalysis shows you have a UTI 2+ leukocytes with 21-50 white blood cells with rare bacteria. Increase fluids and stay well hydrated Wipe front to back. May use wet wipes. Avoid tub baths If sexually active- pee before and after intercourse. Wear cotton panties Avoid tight clothing up against the genitals Follow up with your PCP/OBGYN in 5-7 days Patient Language: Paraguayan Prescriptions: New nitrofurantoin monohyd/m-cryst [Macrobid] 100 mg capsule 100 mg PO Q12H 5 Days Qty: 10 0RF Rx Instructions: must administer with a meal/food No Action metformin 500 mg tablet 500 mg PO TID ondansetron 4 mg tablet,disintegrating 4 mg PO Q8H PRN (Reason: nausea and vomiting) Qty: 14 0RF levofloxacin 750 mg tablet 750 mg PO DAILY Qty: 6 0RF acetaminophen 500 mg tablet 1,000 mg PO TID PRN (Reason: rudy) 7 Days Qty: 42 0RF ibuprofen 800 mg tablet 800 mg PO TID PRN (Reason: pain) 7 Days Qty: 21 0RF Victoza 3-Davis 0.6 mg/0.1 mL (18 mg/3 mL) pen injector SUBCUT ibuprofen 400 mg tablet 400 mg PO TID PRN (Reason: fever or pain) 10 Days Qty: 30 0RF levothyroxine [Synthroid] 150 mcg tablet 150 mcg PO DAILY Qty: 90 1RF Follow-up/Referrals: Deandre,Darryl Zavala MD [Primary Care Provider] Time of Disposition: 15:30 Quality NIHSS Nursing Documentation ED NIHSS nursing documentation: reviewed/agree
[2025-05-15 13:12] LABS: Add Urine Microscopic? YES; Appearance Urine Clear (Clear); Glucose Urine UA Negative (Negative); Leukocyte Esterase Ur 2+ LEU/UL (Negative); Nitrate Urine Negative (Negative); Non Pathogenic Casts 0-2; Specific Grav Ur 1.009 (1.001-1.035)
[2025-05-15 13:13] LABS: INR 0.9; Prothrombin Time 12.6 Seconds (11.1-14.7)
[2025-05-15 13:14] LABS: Partial Thromboplastin Time 24.4 Seconds (22.3-36.8)
[2025-05-15 13:22] LABS: Alanine Aminotransferase 19 U/L (6-35); Albumin Level 4.1 g/dL (3.5-5.1); Alkaline Phosphatase 91 U/L (38-126); Anion Gap 6 mmol/L (4-12); Aspartate Amino Transferase 24 U/L (14-36); Bilirubin,Total 0.3 mg/dL (0.2-1.3); Blood Urea Nitrogen 4 mg/dL (7-17); Calcium 9.4 mg/dL (8.4-10.2); Carbon Dioxide 24 mmol/L (22-30); Chloride 105 mmol/L (98-107); Estimated Glomerular Filt Rate > 60; Glucose 112 mg/dL (65-110); Potassium 3.5 mmol/L (3.4-5.0); Sodium 135 mmol/L (137-145); Total Protein 7.7 g/dL (6.3-8.2)
--- OUTSIDE RECORDS SUMMARY | 2025-05-15 13:27 | XMS_ITS | Encounter Summary ---
Author Organization [facility] Address [address] [place] [address] Phone Care Team Providers Care Rehanger Name Role Phone Darryl Carrera MD Primary Care Provider Encounter Details Date Type Department Care Team (Late st Contact Info) Description 04/27/2018 Telephone [facility] Pediatric Cardiology [facility] 2[address] [place] [address] [place] [address] Candice Orozco Social History Tobacco Use Types Packs/Day Years Used Date Smoking Tobacco: Never Assessed Comments Unknown Sex and Gender Information Value Date Recorded Sex Assigned at Not on file Legal Sex Female 3:45 AM SLITTER SERVICE AND SETTER Gender Identity Female 09/02/2023 2:05 PM SLITTER SERVICE AND SETTER Sexual Orientation Not on file documented as of this encounter Plan of Treatment Not on file documented as of this encounter Visit Diagnoses Not on filedocumented in this encounter Additional Health Concerns Infection Onset Date Last Indicated Resolved Time COVID19 Comment:apr 12 2020 08/18/2020 08/17/2020 documented as of this encounter Care Teams Rehanger Relationship Specialty Start Date End Date Darryl Carrera MD PCP - General 07/05/17 documented as of this encounter
--- OUTSIDE RECORDS SUMMARY | 2025-05-15 13:27 | XMS_ITS | Clinical Summary ---
Author Organization [facility] Address [address] [address] Care Team Providers Care Distributor Sales Manager Name Role Phone Darryl Carrera MD Primary Care Provider Source Comments [facility],non-owned Affiliates and Associated Physician Practices is amultiple site organization consisting of ambulatory clinics and hospital sitesin [place], [place], [place] and [place]. This disclosure is being madepursuant to the Care Everywhere program and may not contain all information available regarding this patient. 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
--- OUTSIDE RECORDS SUMMARY | 2025-05-15 13:27 | XMS_ITS | Clinical Summary ---
Author Organization [facility] Address [address] [place] [address] Care Team Providers Care Supervisor Esters And Emulsifiers Name Role Phone Darryl Carrera MD Primary Care Provider Allergies Active Allergy Reactions Criticality Noted Date Comments Erythromycin Diarrhea,Nausea And Vomiting Low 03/25 Cephalexin Unknown 07/10/2018 [facility]at ing [facility] under [...] 07/01/2008 Assessment & Plan (07/10/2018 9:57 AM CONSUMER ATTORNEY): Outside thyroid function test was checked from [...] 05/01/2024 Assessment & Plan (07/10/2018 9:59 AM CONSUMER ATTORNEY): Diagnosed and managed by her primary OBGYN [...] Description 04/24/2025 Results [facility] [address] [place] [address] Gladys Hou, WILLIE N. gonorrhoeae/C. trachomatis Amplification Urine, Trichomonas vaginalis PCR Urine, PANORAMA TEST, Urine culture Urine, clean voided 04/23/2025 12:25 PM CDT Lab [address] [place] [address] 10 weeks gestation of ; Encounter for supervision of normal first in first trimester; Screening examination for STD (sexually transmitted disease); Congenital hypothyroidism 04/23/2025 11:30 AM CDT Office Visit [facility] [address] [place] [address] Gladys Hou NP 10 weeks gestation of (Primary Dx); Congenital hypothyroidism; Class 1 obesity due to excess calories without serious comorbidity with body mass index (BMI) of 34.0 to 34.9 in adult; Encounter for supervision of normal first in first trimester; Screening examination for STD (sexually transmitted disease); Encounter for screening for chromosomal anomalies 04/23/2025 11:00 AM CDT Clinical Support [facility] [address] [place] [address] with inconclusive viability, single or unspecified fetus (Primary Dx) 04/22/2025 Telephone [facility] [address] [place] [address] Candice Campos LPN 04/05/[address] [facility] Endocrinology at [address] [place] [phone] Cecilia Alcaraz LPN Congenital hypothyroidism 03/18/2025 Telephone [facility] at [address] [place] [phone] Paloma Adkins, RN Problem 03/15/[address] [facility] Endocrinology at [address] [place] [phone] Radha Alejandre MD Congenital hypothyroidism (Primary Dx) 03/15/2025 Results Follow-Up [facility] Endocrinology at [address] [place] [phone] Radha Alejandre MD TSH, T4, free, T3, free 03/13/[address] [facility] Endocrinology at [address] [place] [phone] Radha Alejandre MD Congenital hypothyroidism (Primary Dx) 03/12/2025 Telephone [facility] [address] [place] [phone] Paloma Adkins RN Test Results 03/11/2025 Telephone [facility] at [address] [place] [phone] Paloma Adkins RN positive test from [...] on file Legal Sex Female 3:45 AM CONSUMER ATTORNEY Gender Identity Female 09/02/2023 2:05 PM CONSUMER ATTORNEY Sexual Orientation Not on file Obstetrics History [...] around April 04. 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 She does have cats in the home. [...] with gender, would like to know via DVDPlay message - Reviewed course of care and normal - Dietary and activity restrictions reviewed - SAB precautions reviewed in detail - Practice set up and handouts given - Follow up in 1 month complicated by: 1)BMI 34.28: early glucola 2) Congenital Hypothyroidism: being managed by her Calibration Checker, blood work today 3) Anxiety: was on [...] 37 C (98.6 F) 08/16/2022 9:37 AM CONSUMER ATTORNEY Respiratory Rate 16 11/07/2024 8:33 AM CDT [...] sequencing of this test were performed by [facility]., [id number] [place] [address] [address], [place] [address] (CLIA ID [id number]). The data analysis and reporting of this test were performed by [facility] [address] [facility]. [address], [place] [address] (CLIA ID [id number]). The performance characteristics of this test were developed by [employer].(CLIA ID [id number]). This test has not been cleared or approved by the U.S. Food and Drug Administration (FDA). These laboratories are regulated under CLIA as qualified to perform high-complexity testing. 2024 [employer]. All Rights Reserved. Please refer to the attached PDF report Reviewed By: Cole Yan M.D., Ph.D., [facility], Senior Roller Printing Supervisor [facility] Farm Crew Leader: Damian Patel, Ph.D., [facility] IF THE ORDERING PROVIDER HAS QUESTIONS OR WISHES TO DISCUSS THE RESULTS, PLEASE CONTACT US AT [phone], option 2. Ask for the NIPT genetic counselor business applications analyst. Blood specimen (specimen) Venous blood specimen / Unknown 04/23/2025 2:01 PM CDT 04/24/2025 2:00 AM CDT Gladys Hou NP LAB GENETIC TESTING Final Re sult [facility] [address] [place] [address], [facility] * N. gonorrhoeae/C. trachomatis Amplification Urine (04/23/2025 1:42 PM CDT) C. trachomatis Not Detected Not Detected N. gonorrhoeae Not Detected Not Detected [facility] Comment: Interpretive Data This assay detects Chlamydia trachomatis and Neisseria gonorrhoeae by nucleic acid amplification testing (NAAT). This assay has been cleared by the [place] Food and Drug administration. The performance characteristics of this test have been verified by the [facility]. The performance characteristics of this test have not been evaluated in individuals less than 14 years of age. Current Interpretive Data last revised 2023. Urine (None) 04/23/2025 1:42 PM CDT 04/23/2025 1:42 PM CDT Gladys Hou NP LAB MICROBIOLOGY - GENERAL O RDERABLES Final Result [facility] [address] Department [place] [address] * Trichomonas vaginalis PCR Urine (04/23/2025 1:42 PM CDT) Trichomonas DNA Not Detected [facility] Comment: Interpretive Data This assay detects Trichomonas vaginalis by nucleic acid amplification testing (NAAT). This assay has been cleared by the [place] Food and Drug administration. The performance characteristics of this test have been verified by the [facility] Molecular Infectious Disease laboratory. The performance of this test has not been evaluated in individuals less than 18 years of age. Current Interpretive Data was last revised on 2023. Testing performed by: [facility], [address] [facility], [place]., [address] Urine 04/23/2025 1:42 PM CDT 04/23/2025 4:55 PM CDT us Gladys Hou NP LAB MICROBIOLOGY - GENERAL O RDERABLES Final Result [facility] [address] Department [place] [address] [facility] * (ABNORMAL) Differential, auto (04/23/2025 1:31 PM CDT) Neutrophil abs 7.95(H) 1.50 - 6.50 K/cumm Imm gran abs 0.04 0.00 - 0.10 K/cumm [facility] Lymphocyte abs 1.43 0.80 - 3.30 K/cumm [facility] Monocyte abs 0.48 0.20 - 0.80 K/cumm [facility] Eosinophil abs 0.11 0.00 - 0.50 K/cumm [facility] Basophil abs 0.04 0.00 - 0.10 K/cumm [facility] Neutrophil pct 79.1 % [facility] Comment: Interpretive Data Percent cell count reference ranges are not reported, since discordance with absolute values may lead to misinterpretation of CBC data. Current Interpretive Data was last revised on 2017. Imm gran pct 0.4 % [facility] Comment: Interpretive Data Percent cell count reference ranges are not reported, since discordance with absolute values may lead to misinterpretation of CBC data. Current Interpretive Data was last revised on 2017. Lymphocyte pct 14.2 % [facility] Comment: Interpretive Data Percent cell count reference ranges are not reported, since discordance with absolute values may lead to misinterpretation of CBC data. Current Interpretive Data was last revised on 2017. Monocyte pct 4.8 % [facility] Comment: Interpretive Data Percent cell count reference ranges are not reported, since discordance with absolute values may lead to misinterpretation of CBC data. Current Interpretive Data was last revised on 2017. Eosinophil pct 1.1 % [facility] Comment: Interpretive Data Percent cell count reference ranges are not reported, since discordance with absolute values may lead to misinterpretation of CBC data. Current Interpretive Data was last revised on 2017. Basophil pct 0.4 % [facility] Comment: Interpretive Data Percent cell count reference ranges are not reported, since discordance with absolute values may lead to misinterpretation of CBC data. Current Interpretive Data was last revised on 2017. Blood 04/23/2025 1:31 PM CDT 04/23/2025 7:42 PM CDT Gladys Hou SOUND TECHNICIAN LAB BLOOD ORDERABLES Final R esult Performing Organization Address City/[facility] Co de Phone Number [facility] [address] [place] [address] * GTT 50gm 1hr gestational [...] CDT 04/23/2025 4:27 PM CDT Gladys Hou SOUND TECHNICIAN LAB BLOOD ORDERABLES Final R esult Performing Organization Address City/[facility]/ZIP Co de Phone Number [facility] [address] Department [employer] [place], [place] [phone] * HIV 1/2 Antibody plus p24 Antigen [...] O RDERABLES Final Result Performing Organization Address City/[facility]/ZIP Co de Phone Number [facility] [address] [place] [address] * (ABNORMAL) CBC with auto differential (04/23/2025 1:31 PM CDT) [facility] WBC 10.05(H) 3.80 - 9.90 K/cumm Hgb 13.3 11.9 - 15.5 g/dL [facility] Hct 38.6 35.6 - 45.5 % [facility] Plt 343 150 - 400 K/cumm [facility] MPV 9.8 9.1 - 12.3 fL [facility] RBC 4.45 3.90 - 5.20 M/cumm [facility] MCV 86.7 81.3 - 96.4 fL [facility] MCH 29.9 27.1 - 33.3 pg [facility] MCHC 34.5 32.3 - 35.7 g/dL [facility] RDW CV 12.3 11.1 - 14.9 % [facility] RDW SD 38.8 35.7 - 48.1 fL [facility] NRBC abs 0.00 0.00 - 0.01 K/cumm [facility] Blood 04/23/2025 1:31 PM CDT 04/23/2025 7:42 PM CDT Gladys Hou NP LAB BLOOD ORDERABLES Final R esult Performing Organization Address City/[facility]/ZIP Co de Phone Number [facility] [address] Department of [email or web address] [place], [place] [phone] * Hepatitis C antibody Blood (04/23/2025 1:31 PM CDT) [facility] Hep C Ab Nonreactive Nonreactive Comment: Interpretive [...] - GENERAL O RDERABLES Final Result [facility] [address] Department [place] [address] * Rubella IgG antibody Blood (04/23/2025 1:31 PM CDT) Pathologist [facility] Rubella IgG Reactive Reactive Comment:Reactive: Results ann ggest response to immunization or prior exposure to the virus. Blood 04/23/2025 1:31 PM CDT 04/23/2025 5:47 PM CDT Gladys Hou NP LAB MICROBIOLOGY - GENERAL O RDERABLES Final Result [facility] [address] Department [email or web address] [address] * RPR Blood (04/23/2025 1:31 PM CDT) Pathologist [facility] RPR Nonreactive Nonreactive Comment:Testing performed by : [facility], [address], [place]., [address] Blood 04/23/2025 1:31 PM CDT 04/23/2025 7:03 PM CDT Gladys Hou NP LAB MICROBIOLOGY - GENERAL O RDERABLES Final Result Performing Organization Address [facility] Co de Phone Number [facility] [address] Department [place] [address] * Hepatitis B Surface Antigen Blood (04/23/2025 1:31 PM CDT) [facility] HepBsAg Nonreactive Nonreactive Blood 04/23/2025 1:31 PM CDT 04/23/2025 5:47 PM CDT Gladys Hou NP LAB MICROBIOLOGY - GENERAL O RDERABLES Final Result Performing Organization Address [facility] Co de Phone Number [facility] [address] Department [place] [email or web address] [address] * Type and screen (04/23/2025 1:31 PM CDT) [facility] Marino, indirect Negative ABO Rh A Negative [facility] Blood 04/23/2025 1:31 PM CDT 04/23/2025 4:21 PM CDT Narrative [facility] - 04/23/2025 5:07 PM CDT Has the patient had Daratumumab or Isatuximab in the past 6 months?->Unknown Gladys Hou NP LAB BLOOD BANK TEST ORDERABL ES Final Result Performing Organization Address [facility] Co de Phone Number [facility] [address] Department of Laboratories [place], [place] [phone] * (ABNORMAL) Varicella Zoster IgG antibody Blood (04/23/2025 1:31 PM CDT) [facility] VZV IgG Equivocal( A) Reactive Comment: Equivocal: Presence or absence of detectable antibodies to Varicella-zoster virus cannot be determined. Submit new specimen if clinically indicated. Testing performed by: [facility], [address], [place]., [address] Blood 04/23/2025 1:31 PM CDT 04/23/2025 7:07 PM CDT Gladys Hou SOUND TECHNICIAN LAB MICROBIOLOGY - GENERAL O RDERABLES Final Result Performing Organization Address [facility] Co de Phone Number [facility] [address] [facility] [email or web address] [place], [place] [phone] * T3, free (04/23/2025 1:31 PM CDT) Free T3 3.0 2.0 - 4.4 pg/mL Blood 04/23/2025 1:31 PM CDT 04/23/2025 4:26 PM CDT Radha Alejandre MD LAB BLOOD ORDERABLES Final R esult Performing Organization Address [facility] Co de Phone Number [facility] [address] Department [email or web address] [address] * TSH (04/23/2025 1:31 PM CDT) Thyroid Stimulating Hormone 0.62 0.30 - 4.20 mcIUnit/mL Blood 04/23/2025 1:31 PM CDT 04/23/2025 4:26 PM CDT Radha Alejandre MD LAB BLOOD ORDERABLES Final R esult Performing Organization Address [facility] Co de Phone Number [facility] [address] [facility] [email or web address] [address] * T4, free (04/23/2025 1:31 PM CDT) Free T4 1.04 0.90 - 1.70 ng/dL Blood 04/23/2025 1:31 PM CDT 04/23/2025 4:26 PM CDT Radha Alejandre MD LAB BLOOD ORDERABLES Final R esult Performing Organization Address [facility]/ZIP Co de Phone Number [facility] [address] [facility] [email or web address] [address] * (ABNORMAL) Urine culture Urine, clean voided (04/23/2025 12:13 PM CDT) Report Final Report: Less than 10,000 colonies/ml of Gram Positive Organism No further workup. (.) Organism GRAM POSITIVE ORGANISM [facility] Urine, clean voided 04/23/2025 12:13 PM CDT 04/23/2025 1:43 PM CDT Gladys Hou NP LAB MICROBIOLOGY - GENERAL O RDERABLES Final Result Performing Organization Address [facility] Co de Phone Number [facility] [address] Department [email or web address] [address] * POCT OB urine short dip (glucose, protein, ketones) (04/23/2025 11:43 AM CDT) Glucose, ur, POC Negative Negative Protein, ur, POC Negative Negative Ketones, ur, POC Negative Negative Lot Number [id number] Comment:[email or web address]. trace Urine 04/23/2025 11:4 3 AM [...] T3, free (03/14/2025 2:56 PM CDT) Pathologist [facility] Triiodothyronin e,Free,Serum 3.7 2.0 - 4.4 pg/mL [facility] - 01 Blood 03/14/2025 2:56 PM CDT 03/14/2025 Narrative [facility] - 03/15/2025 12:10 PM CDT Performed at: [address] [place] [id number] Farm Crew Leader: Rai Flores PhD, Phone: [phone] Radha Alejandre MD LAB BLOOD ORDERABLES Final R esult Performing Organization Address City/[facility]/ZIP Co de Phone Number [facility] - * TSH (03/14/2025 2:56 PM CDT) [facility] TSH 1.380 0.450 - 4.500 uIU/mL [facility] - 01 Blood 03/14/2025 2:56 PM CDT 03/14/2025 Narrative [facility] - 03/15/2025 11:11 AM CDT Performed at: [address] [place] [id number] Farm Crew Leader: Rai Flores PhD, Phone: [phone] Radha Alejandre MD LAB BLOOD ORDERABLES Final R esult [facility] - * T4, free (03/14/2025 2:56 PM CDT) Pathologist [facility] T4,Free(Direct) 1.11 0.82 - 1.77 ng/dL [facility] - 01 Blood 03/14/2025 2:56 PM CDT 03/14/2025 Narrative [facility] - 03/15/2025 11:11 AM CDT Performed at: [address] [id number] Farm Crew Leader: Rai Flores PhD, Phone: [phone] Radha Alejandre MD LAB BLOOD ORDERABLES Final R esult Performing Organization Address [facility] de Phone Number [facility] * Progesterone (03/11/2025 3:19 PM CDT) [facility] Progesterone 19.1 ng/mL [facility] - Comment: Follicular phase 0.1 - 0.9 Luteal phase 1.8 - 23.9 Ovulation phase 0.1 - 12.0 First trimester 11.0 - 44.3 Second trimester 25.4 - 83.3 Third trimester 58.7 - 214.0 Postmenopausal 0.0 - 0.1 Blood 03/11/2025 3:19 PM CDT 03/11/2025 Narrative [facility] - 03/12/2025 8:11 AM CDT Performed at: [address] [id number] Farm Crew Leader: Rai Flores PhD, Phone: [phone] Brandy Nowak MD LAB BLOOD ORDERABLES Final Result Performing Organization Address [facility] de Phone Number [facility] * hCG, blood, quantitative (03/11/2025 3:19 PM CDT) [facility] HCG, quant 396 mIU/mL [facility] - Comment: Female (Non-) 0 - 5 (Postmenopausal) 0 - 8 Female () Weeks of Gestation 3 6 - 71 4 10 - 750 5 844 - 9275 6 556 - 48732 7 1191 -[phone] 8 13175 -[phone] 9 [phone] -[phone] 10 71889 -121428 12 22230 -156928 14 69819 - 62614 15 16309 - 18009 16 0866 - 72471 17 3382 - 00725 18 2881 - 82499 Fay ECLIA methodology Blood 03/11/2025 3:19 PM CDT 03/11/2025 Narrative [facility] - 03/12/2025 8:11 AM CDT Performed at: 01 - [address] [id number] Farm Crew Leader: Rai Flores PhD, Phone: [phone] Brandy Nowak MD LAB BLOOD ORDERABLES Final Result [facility] - 01 * High Risk HPV DNA Detection with Genotyping (Molecular component) (12/17/2024 4:30 PM CDT) HPV HR 16 Not Detected Not Detected HPV HR 18 Not Detected Not Detected [facility] HPV HR Non 16/18 Not Detected Not Detected [facility] Comment: Interpretive Data Nucleic acid [...] this test have been verified by the [facility]. Correlate with separately reported cytology results, as applicable. Interpretive data last revised 23 Endocervical 12/17/2024 4:30 PM CDT 12/17/2024 9:02 PM CDT Narrative [facility] - 12/19/2024 7:26 PM CDT Clinical history and diagnosis->well woman exam Number of vials->1 Testing type->Screening Last menstrual period (date if known)->11/10/24 Previous positive HPV history?->No Previous negative PAP?->Yes Brandy Nowak MD LAB BODY FLUIDS AND STOOLS ORDERABLES Final Result [facility] [address] Department [place] [address] from Last 3 Months or Most Recently Relevant to Health Maintenance Additional Health Concerns Infection Onset Date Last Indicated COVID19 Comment:apr 12 2020 08/18/2020 08/17/2020 Insurance [facility] CHOICE PLUS [facility] [employer] [facility] Advance Directives For more information, please contact: [phone] Documents on File Type Date Recorded Patient Baccarat Manager Expl anation ADVANCE DIRECTIVE 09/14/2018 3:33 PM Care Teams Supervisor Esters And Emulsifiers Relationship Specialty Start Date End Date Darryl Carrera MD PCP - General 07/05/17
--- OUTSIDE RECORDS SUMMARY | 2025-05-15 13:27 | XMS_ITS | Encounter Summary ---
Author Organization [facility] Healthcare Address [address] [place] [address] Care Team Providers Care Stove Mounter Name Role Phone Darryl Carrera MD Primary Care Provider Encounter Details Date Type Department Care Team (Latest Contact Info) Description 03/15/2025 Results Follow-Up [facility] Endocrinology at 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
--- OUTSIDE RECORDS SUMMARY | 2025-05-15 13:27 | XMS_ITS | Encounter Summary ---
Author Organization [facility] Healthcare Address [address] [place] [address] Care Team Providers Care Oceanology Teacher Name Role Phone Darryl Carrera MD Primary Care Provider Encounter Details Date Type Department Care Team (Late st Contact Info) Description 04/24/2025 Results [facility] [place] [address] [place] [address] Gladys Hou, WILLIE [address] [facility] [address] [place], [place] [id number] N. gonorrhoeae/C. 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
[2025-05-15 14:06] LABS: Beta HCG Quantitative 45671.00 mIU/ML
[2025-05-15] MEDS: RHO(D) IMMUNE GLOBULIN 300 MCG/2 ML SYRINGE IM (15:30)
[2025-05-15 15:54] VITALS: BP 103/85; PULSE 98; RESP 16; TEMP 37; O2SAT 100
[2025-05-15 15:59] VITALS: BP 103/86; PULSE 96; RESP 16; O2SAT 99
== END 2025-05-15 15:59 | disposition home or self-care (01) ==
PROVIDERS: Emergency Medicine; Emergency Provider Nurse Practitioner Family; PCP Internal Medicine
DX: O20.9 Hemorrhage in early pregnancy, unspecified (principal); O23.42 Unspecified infection of urinary tract in pregnancy, second trimester; N39.0 Urinary tract infection, site not specified; O99.282 Endocrine, nutritional and metabolic diseases complicating pregnancy, second trimester; E28.2 Polycystic ovarian syndrome; E03.9 Hypothyroidism, unspecified; Z3A.14 14 weeks gestation of pregnancy; Z90.49 Acquired absence of other specified parts of digestive tract
CPT/HCPCS: 36415; 76801; 80053; 81001; 84702; 85025; 85461; 85610; 85730; 86850; 86900; 86901; 87086; 90384; 96372; 99284; J2790